=== PATIENT | female | born 1960 | race Caucasian/White ===

== ENCOUNTER 2017-10-25 20:02 | Emergency (ER) | payer OTHER ==
[~2017-10-25] VITALS: Ht 154.9 cm; Wt 54.2 kg
[2017-10-25 20:05] VITALS: TEMP 36.8; Ht 154.9 cm; Wt 54.2 kg
[2017-10-25] MEDS ORDERED: ACETAMINOPHEN 500 MG TAB PO STA (20:22)
--- NOTE | 2017-10-25 21:13 | DIAGNOSTIC IMAGING REPORT ---
PELVIS 1 OR 2 VIEW ROUTINE HISTORY: 56 years-old Female R buttock hematoma acute hematoma of the right buttocks COMPARISON: None available TECHNIQUE: Single AP view of the pelvis FINDINGS: No acute fracture or dislocation. Mild degenerative changes about the bilateral femoral acetabular joints and SI joints. Round ossifications are noted about the bilateral hips suggesting dystrophic calcifications. There is moderate soft tissue prominence within the soft tissues about the right hip, notably inferior and medially, likely correlating with gluteal hematoma as described in the patient history. No opaque foreign body. IMPRESSION: 1. Mild degenerative changes about the bilateral hips without acute fracture or dislocation. 2. Moderate soft tissue prominence about the right hip. The above report was generated using voice recognition software. It may contain grammatical, syntax or spelling errors. Electronically signed by: Mg Vidales M.D. 10/25/2017 9:11 PM Dictated Date/Time: 10/25/2017 9:10 PM
--- NOTE | 2017-10-25 21:37 | DIAGNOSTIC IMAGING REPORT ---
R EXTREMITY NONVASCULAR LIMITED HISTORY: 56 years-old Female R buttock hematoma acute right gluteal swelling COMPARISON: Pelvic radiograph of same day TECHNIQUE: Multiple real-time sonographic images of the right gluteal tissues were obtained assessing grayscale appearance and color flow FINDINGS/IMPRESSION: There is moderate subcutaneous edema about the right gluteal tissues. There are two separate mild complex hypoechoic collections within the area of concern, largest of which measures up to 1.7 x 3.3 x 1.4 cm, and the second measures 1.5 x 0.6 x 1.1 cm suggesting areas of intramuscular hematoma. No areas of increased vascularity. The above report was generated using voice recognition software. It may contain grammatical, syntax or spelling errors. Electronically signed by: Mg Vidales M.D. 10/25/2017 9:35 PM Dictated Date/Time: 10/25/2017 9:33 PM
[2017-10-25 22:24] VITALS: BP 143/97; PULSE 106; O2SAT 97
--- NOTE | 2017-10-26 00:15 | EMERGENCY ROOM VISIT NOTE ---
History First contact with patient: 20:11 Chief Complaint: OTHER COMPLAINT Stated Complaint: BUTTOCK INJURY EXTREME SWELLING AND PAIN History of Present Illness The patient is a 56 year old female who presents to the Emergency Room with complaints of a right buttock injury after she slipped while standing on a chair and fell onto the top of the chair post. The patient reports that the injury happened earlier this afternoon, then started to notice swelling and discomfort within a couple hours. Patient also reports firmness of the right buttock. She was seen at an urgent care center in [place], and encouraged to follow-up for further emergent ultrasound as they do not have ultrasound capability in the office. The patient rates her discomfort a 5 out of 10. She denies any paresthesias, numbness or burning sensation radiating down the leg. She denies any back pain. Ambulation worsens her discomfort. The patient does take a baby aspirin daily. Review of Systems 10 system review was performed and was negative except for pertinent positives and negatives as indicated in history of present illness Past Medical/Surgical History Medical Problems: (1) Hypertension (2) Hypothyroidism (3) Kidney stones Family History FH: heart disease FH: hypertension Social History Smoking Status: Never Smoker Alcohol Use: none Marital Status: Occupation Status: employed Physical Exam Vital Signs Date Time Temp Pulse Resp B/P (MAP) Pulse Ox O2 Delivery O2 Flow Rate FiO2 10/25/17 22:24 106 18 143/97 97 10/25/17 20:05 36.8 108 18 161/96 100 Room Air Physical Exam CONSTITUTIONAL: Healthy and well nourished. Alert and oriented X 3 with positive affect. HEENT: Normocephalic, atraumatic. Pupils equal, round and reactive. NECK: Full active range of motion without discomfort. MUSCULOSKELETAL: Gentle passive range of motion of the hip does not cause any discomfort. The patient exhibits a mild antalgic gait with ambulation. Patient has no tenderness to palpation through the sacral or lumbar spine region. Elbow stable with rock. INTEGUMENTARY: Examination shows notable induration and firmness of the right medial buttock region. No lacerations noted. NEUROLOGIC: Right lower extremity is sensory intact. Medical Decision & Procedures ER Provider Diagnostic Interpretation: My interpretation of pelvis x-rays does not show any obvious fractures. Radiologist report is as follows: PELVIS 1 OR 2 VIEW ROUTINE HISTORY: 56 years-old Female R buttock hematoma acute hematoma of the right buttocks COMPARISON: None available TECHNIQUE: Single AP view of the pelvis FINDINGS: No acute fracture or dislocation. Mild degenerative changes about the bilateral femoral acetabular joints and SI joints. Round ossifications are noted about the bilateral hips suggesting dystrophic calcifications. There is moderate soft tissue prominence within the soft tissues about the right hip, notably inferior and medially, likely correlating with gluteal hematoma as described in the patient history. No opaque foreign body. IMPRESSION: 1. Mild degenerative changes about the bilateral hips without acute fracture or dislocation. 2. Moderate soft tissue prominence about the right hip. Local ultrasound of the buttocks shows 2 small hematomas: R EXTREMITY NONVASCULAR LIMITED HISTORY: 56 years-old Female R buttock hematoma acute right gluteal swelling COMPARISON: Pelvic radiograph of same day TECHNIQUE: Multiple real-time sonographic images of the right gluteal tissues were obtained assessing grayscale appearance and color flow FINDINGS/IMPRESSION: There is moderate subcutaneous edema about the right gluteal tissues. There are two separate mild complex hypoechoic collections within the area of concern, largest of which measures up to 1.7 x 3.3 x 1.4 cm, and the second measures 1.5 x 0.6 x 1.1 cm suggesting areas of intramuscular hematoma. No areas of increased vascularity. Medications Administered Medications (Trade) Dose Ordered Sig/Fransico Route Start Time Stop Time Status Last Admin Dose Admin Acetaminophen (Tylenol Tab) 1,000 mg NOW STAT PO 10/25/17 20:22 10/25/17 20:25 DC 10/25/17 21:04 1,000 MG ED Course Patient history and physical exam were performed. Nurse's notes were reviewed. Vital signs were reviewed, showing an elevated blood pressure 161/96. The patient appears in mild to moderate discomfort. At her request, she was administered Tylenol 1 g. X-rays of the pelvis were normal. Ultrasound of the right buttock shows 2 distinct hematomas. At this point, the patient was encouraged to follow-up with a general surgeon in [place] for further management. She was also provided contact information for Dr. Jensen locally if she wishes to return to [place]. The patient was encouraged to intermittently apply ice to the buttock. Ibuprofen and Tylenol as needed for pain. She was instructed to seek emergent reevaluation for any significantly worsening pain or paresthesias/numbness of the right lower extremity. The patient was happy with plan of care, voiced understanding of all discharge instructions, and rated her discomfort a 3 out of 10 at the conclusion of my exam. The patient was also encouraged to follow-up with your PCP for blood pressure recheck. Medical Decision Medication Reconcilliation Current Medication List: was personally reviewed by me Blood Pressure Screening Patient's blood pressure: Elevated blood pressure Blood pressure disposition: Referred to PCP Impression Primary Impression: Right buttock hematoma Additional Impression: Elevated blood pressure reading with diagnosis of hypertension Departure Information Referrals Otilia Johnson D.O. (PCP) Patient Instructions [facility] Health Problem Qualifiers
== END 2017-10-25 22:24 | disposition home or self-care (01) ==
LOC: C.EDB 20:04 → C.EDD 22:24
DX: S30.0XXA Contusion of lower back and pelvis, initial encounter (principal); I10 Essential (primary) hypertension; W07.XXXA Fall from chair, initial encounter; W22.09XA Striking against other stationary object, initial encounter; Z87.442 Personal history of urinary calculi; Z82.49 Family history of ischemic heart disease and other diseases of the circulatory system

== ENCOUNTER 2019-07-30 07:45 | Inpatient (IN) ==
--- NOTE | 2019-07-15 12:57 | PAT Medication Instructions ---
Medication Instructions Date of Service July 15, 2019 Home Medications Levothyroxine 1 dose PO QAM amlodipine 5 mg PO HS ascorbic acid (vitamin C) 500 mg PO QAM cholecalciferol (vitamin D3) 125 mcg PO 3XWK coenzyme Q10 [CoQ-10] 200 mg PO HS hydrochlorothiazide 25 mg PO QAM lactobacillus combination no.4 [Probiotic] 3,000 mmu cells PO QAM magnesium 400 mg PO HS omega 0-vpe-pnw-fish oil [Fish Oil] 1 cap PO BID STOP taking 2 weeks before surgery If surgery is within 2 weeks, stop taking as soon as possible. coenzyme Q10 [CoQ-10] 200 mg PO HS omega 2-rvm-ezi-fish oil [Fish Oil] 1 cap PO BID DO NOT take the morning of surgery ascorbic acid (vitamin C) 500 mg PO QAM cholecalciferol (vitamin D3) 125 mcg PO 3XWK hydrochlorothiazide 25 mg PO QAM lactobacillus combination no.4 [Probiotic] 3,000 mmu cells PO QAM Take morning of surgery With a small sip of water, OTHERWISE NOTHING TO EAT OR DRINK AFTER MIDNIGHT: Levothyroxine 1 dose PO QAM Take evening before surgery amlodipine 5 mg PO HS magnesium 400 mg PO HS Other Notes If you have any questions please call us at [phone] or [phone] or [phone] or [phone]
--- NOTE | 2019-07-15 13:06 | Anesthesiology Consultation ---
Date of Service July 15, 2019 Assessment & Plan (1) Encounter for pre-operative examination: Chart Review Chart Review: Pending: Refer to Additional Notes / Consult section (pending PCP clearance and response to mild thrombocytosis ) and Patient seen in Pre Admission Testing BP mildly elevated in office- pt checks routinely at home- usually 130's/mid 80s. Has PCP clearance 07/18- will get copy Pre op labs showed mild thrombocytosis. Otherwise pre op testing unremarkable. Note and testing sent to PCP History Surgery Operation Date: 07/30/19 10:25 Proposed Procedures p L3-L5 Decompression and Fusion, Spinal Cord Monitoring - Froy Fernandes, Height/Weight Height: 5 ft 1 in Weight: 68 kg Allergies Allergy/AdvReac Type Severity Reaction Status Date / Time chlorhexidine Allergy Unknown "CHLORAPREP" Verified 07/08/19 10:00 - RED RASH ciprofloxacin [From Cipro] Allergy Unknown HIVES, Verified 07/08/19 10:00 RASH AND FACE REDNESS levofloxacin [From Levaquin] Allergy Unknown HIVES, Verified 07/08/19 10:00 RASH AND FACE REDNESS Medications Home Medications Medication Instructions Recorded Confirmed Last Taken Levothyroxine 1 dose PO QAM 07/08/19 07/08/19 Unknown amlodipine 5 mg PO HS 07/08/19 07/08/19 Unknown ascorbic acid (vitamin C) [Vitamin 500 mg PO QAM 07/08/19 07/08/19 Unknown C] cholecalciferol (vitamin D3) 125 mcg PO 3XWK 07/08/19 07/08/19 Unknown [Vitamin D3] coenzyme Q10 [CoQ-10] 200 mg PO HS 07/08/19 07/08/19 Unknown hydrochlorothiazide 25 mg PO QAM 07/08/19 07/08/19 Unknown lactobacillus combination no.4 3,000 mmu cells PO QAM 07/08/19 07/08/19 Unknown [Probiotic] magnesium 400 mg PO HS 07/08/19 07/08/19 Unknown omega 3-ijj-mma-fish oil [Fish Oil] 1 cap PO BID 07/08/19 07/08/19 Unknown Past Medical History Medical History Herniated disc LUMBAR History of kidney stones No recent issues Hypertension Has seen cardio in the past for HTN- has been controlled - now only follows with PCP. Hypothyroidism Pinched nerve Secondary to lumbar issue- right LE pain Exercise / Class Metabolic Activity II 4-5 Yardwork/Stairs/Walk up hill (one flight of stairs - no chest pain or SOB ) Past Surgical History Surgical History History of 2 sections Had GA with c-sections- 1st GA done due to not having enough time to put spinal in- fetus was in distress. Pt requested to have GA for second History of colonoscopy History of surgery "TUMMY TUCK" Past Anesthesia History No Hx of Anesthesia Complications and No Family Hx of Anesthesia Complications History of PONV No Hx of PONV (Did have scopolamine patch for tummy tuck as general precaution ) and No Hx of Motion Sickness (has had in past ) Social History Smoking Status: Never smoker Do You Dip or Chew Tobacco: No Hx Alcohol Use: No Hx Substance Use: No substance use type: does not use Review of Systems Patient denies chest pain, shortness of breath, dyspnea on exertion, reflux, cough, wheezing, palpitations. Steroid injection- 06/06/19 caused mild palpitations- no recent issues Physical Exam Vital Signs VITALS BP 152/95 P 101 TEMP 98.8 SP02 98% RESP 16 Constitutional no acute distress ENMT Mouth: no TMJ abnormality Thyromental Distance: > or= 3.5 Finger Breadths Right upper molar (second to last) has cap- no missing teeth Neck neck extension not limited Respiratory normal respiratory effort; no respiratory distress Auscultation: lungs clear to auscultation bilaterally; no wheezes Cardiovascular Rate/Rhythm: regular rate and regular rhythm Musculoskeletal Spine: no pain with cervical ROM Neurologic moves all extremities No LE edema Psychiatric Orientation: alert Testing Laboratory Results 07/15/19 13:39 07/15/19 13:39 PT 9.8 Seconds (9.0-12.0) 07/15/19 13:39 INR 1.0 (0.9-1.1) 07/15/19 13:39 APTT 24.6 Seconds (21.0-31.0) 07/15/19 13:39 Urine Color Yellow 07/15/19 Unknown Urine Appearance Clear (Clear) 07/15/19 Unknown Urine pH 6.5 (4.5-7.5) 07/15/19 Unknown Ur Specific Commerce 1.007 (1.000-1.030) 07/15/19 Unknown Urine Protein Negative (Negative) 07/15/19 Unknown Urine Glucose (UA) Negative (Negative) 07/15/19 Unknown Urine Ketones Trace (Negative) H 07/15/19 Unknown Urine Nitrite Negative (Negative) 07/15/19 Unknown Ur Leukocyte Esterase Negative (Negative) 07/15/19 Unknown Blood Type O Negative 07/15/19 13:39 Antibody Screen NEGATIVE 07/15/19 13:39 Electrocardiogram Date: 07/15/19 Findings: + NSR @ (92) Low voltage QRS. NS ST abnormality Chest X-Ray Date: 07/15/19 Findings: + NAD Stress Test Date: 08/30/17 Type: Exercise Stress ECHO Resting EF: 65% Resting RWMA: + none Valvular Disease: no significant valvular disease Stress ECHO negative for inducible ischemia. No EKG or wall motion abnormalities to suggest ischemia. 90% MPHR/8 METS. No significant arrhythmias
--- NOTE | 2019-07-15 14:07 | XRay Report ---
XR chest Pre-admission PA/Lat CLINICAL HISTORY: pat preoperative evaluation COMPARISON STUDY: No previous studies for comparison. FINDINGS: The bones soft tissues and hemidiaphragms are normal. The cardiomediastinal silhouette is n ormal. The lungs are clear. The pulmonary vasculature is normal. Minimal left basilar platelike atele ctasis IMPRESSION: No acute process. ACT 112: Negative or not required by law. The above report was generated using voice recognition software. It may contain grammatical, syntax or spelling errors. Electronically signed by: Matthew Ritchie M.D. 07/15/2019 2:05 PM
[2019-07-15 14:50] LABS: Basophils # (auto) 0.12 K/uL (0-0.2); Basophils % (auto) 1.5 %; Eosinophils # (auto) 0.04 K/uL (0-0.5); Eosinophils % (auto) 0.5 %; Hematocrit (blood only) 45.1 % (37-47); Hemoglobin 15.5 g/dL (12.0-16.0); Immature Granulocytes # (auto) 0.03 K/uL (0.00-0.02); Immature Granulocytes % (auto) 0.4 %; Lymphocytes # (auto) 2.14 K/uL (1.2-3.4); Lymphocytes % (auto) 26.6 %; Mean Corpuscular Hemoglobin 32.6 pg (25-34); Mean Corpuscular Hgb Conc 34.4 g/dL (32-36); Mean Corpuscular Volume 94.7 fL (80-100); Monocytes # (auto) 0.47 K/uL (0.11-0.59); Monocytes % (auto) 5.8 %; Neutrophils # (auto) 5.25 K/uL (1.4-6.5); Neutrophils % (auto) 65.2 %; Platelet Count 539 K/uL (130-400); RDW Coefficient of Variation 12.7 % (11.5-14.5); Red Blood Count 4.76 M/uL (4.2-5.4); White Blood Count 8.05 K/uL (4.8-10.8)
[2019-07-15 14:59] LABS: Appearance Urine Clear (Clear); Bilirubin Urine Negative (Negative); Blood Urine Negative (Negative); Color Urine Yellow; Glucose Urine UA Negative (Negative); Ketones Urine Trace (Negative); Leukocyte Esterase Urine Negative (Negative); Nitrite Urine Negative (Negative); Protein Urine Negative (Negative); Specific Gravity Urine 1.007 (1.000-1.030); Urobilinogen Urine Negative (Negative); pH Urine 6.5 (4.5-7.5)
[2019-07-15 15:08] LABS: Partial Thromboplastin Ratio 0.9; Partial Thromboplastin Time 24.6 Seconds (21.0-31.0); Prothrombin Time 9.8 Seconds (9.0-12.0)
[2019-07-15 15:47] LABS: BUN Creatinine Ratio 15.8 (10-20); Calcium 10.1 mg/dl (8.5-10.1); Creatinine Clr Calc Pharmacy 52.9 ml/min; Est GFR (African American) 70.6; Est GFR (Non-African American) 60.9; Potassium 3.6 mmol/L (3.5-5.1)
--- NOTE | 2019-07-16 17:38 | Electrocardiogram Report ---
Test Reason : Blood Pressure : / mmHG Vent. Rate : 092 BPM Atrial Rate : 092 BPM P-R Int : 148 ms QRS Dur : 076 ms QT Int : 350 ms P-R-T Axes : 066 065 032 degrees QTc Int : 432 ms Normal sinus rhythm Low voltage QRS Nonspecific ST abnormality Abnormal ECG No previous ECGs available Confirmed by Merrill Lucas ([id number]) on 07/16/2019 5:38:00 PM Referred By: Froy Fernandes Confirmed By:Shaw Lucas
[~2019-07-30 07:45] MED LIST: ACETAMINOPHEN 500 MG TAB PO SCH; CEFAZOLIN 1000MG 1,000 MG/7.5 ML SYR IV SCH; CeleBREX 200 MG CAP PO SCH; GABAPENTIN 600 MG DOSE PO SCH; LR 15ML/HR IV SCH
[2019-07-30] MEDS ORDERED: ePHEDrine sulfate 50 MG/ML AMP IV PRN (09:21)
[2019-07-30] MEDS ORDERED: ATROPINE SULFATE 0.1 MG/ML 10ML SYR IV PRN (09:21)
[2019-07-30] MEDS ORDERED: HYDROmorphone INJ 2 MG/ML SYR/VIAL IV PRN (09:21)
[2019-07-30] MEDS ORDERED: ONDANSETRON INJ 2 MG/ML 2 ML VIAL IV PRN ×2 (09:21→14:56)
--- NOTE | 2019-07-30 10:12 | History & Physical Report ---
Date of Service July 30, 2019 Assessment & Plan (1) Neurogenic claudication due to lumbar spinal stenosis: L3-L5 decompression fusion Present on Admission?: Yes History of Present Illness Chief Complaint: Back and leg pain Primary Care Provider: Prashanth Le MD This is a 58-year-old female presents with chronic persistent back and leg pain. After failing extensive course of nonoperative care is here for surgical intervention. Allergies Allergy/AdvReac Type Severity Reaction Status Date / Time chlorhexidine Allergy Unknown "CHLORAPREP" Verified 07/30/19 08:09 - RED RASH ciprofloxacin [From Cipro] Allergy Unknown HIVES, Verified 07/30/19 08:09 RASH AND FACE REDNESS levofloxacin [From Levaquin] Allergy Unknown HIVES, Verified 07/30/19 08:09 RASH AND FACE REDNESS Home Medications Home Medications Medication Instructions Recorded Confirmed Type Levothyroxine 1 dose PO QAM 07/08/19 07/30/19 History amlodipine 5 mg PO HS 07/08/19 07/30/19 History ascorbic acid (vitamin C) [Vitamin 500 mg PO QAM 07/08/19 07/30/19 History C] cholecalciferol (vitamin D3) 125 mcg PO 3XWK 07/08/19 07/30/19 History [Vitamin D3] coenzyme Q10 [CoQ-10] 200 mg PO HS 07/08/19 07/30/19 History hydrochlorothiazide 25 mg PO QAM 07/08/19 07/30/19 History lactobacillus combination no.4 3,000 mmu cells PO QAM 07/08/19 07/30/19 History [Probiotic] magnesium 400 mg PO HS 07/08/19 07/30/19 History omega 5-qqp-hti-fish oil [Fish Oil] 1 cap PO BID 07/08/19 07/30/19 History Past Med/Surg History Medical History Herniated disc LUMBAR History of kidney stones No recent issues Hypertension Has seen cardio in the past for HTN- has been controlled - now only follows with PCP. Hypothyroidism Pinched nerve Secondary to lumbar issue- right LE pain Surgical History History of 2 sections Had GA with c-sections- 1st GA done due to not having enough time to put spinal in- fetus was in distress. Pt requested to have GA for second History of colonoscopy History of surgery "SHABANA CASTELLON" Social History Preferred Language: Bahamian Communication Ability: Effective Credit Correspondence Clerk Required: No Beliefs That Will Affect Care: None Current Living Situation: Spouse Other Information That Helps Us Care for You: No Feels Safe at Home: Yes Smoking Status: Never smoker Do You Dip or Chew Tobacco: No ; Hx Alcohol Use: No Hx Substance Use: No Physical Exam Physical Exam: Patient is alert and oriented neurologically intact. Results & Data Vital Signs (Past 12 Hours) Vital Signs Temp Pulse Resp BP Pulse Ox 07/30/19 08:12 36.6 C 96 H 18 159/86 H 98
--- NOTE | 2019-07-30 10:12 | History & Physical Bridge Note ---
Date of Service July 30, 2019 History & Physical Bridge Note I have examined the patient, reviewed the History & Physical and in the interval since the performance of the History & Physical I have noted the following changes of clinical significance: no changes noted
[2019-07-30] MEDS ORDERED: BACITRACIN INJ 50,000 UNIT VIAL ONE (10:33)
[2019-07-30] MEDS ORDERED: BUPIVACAINE/EPINEPHRINE 0.5% MPF 1:200,000 10 ML VIAL ONE (10:33)
[2019-07-30] MEDS ORDERED: FLOSEAL HEMOSTATIC MATRIX 10ML TOP ONE (11:34)
[2019-07-30] MEDS ORDERED: ePHEDrine sulfate 50 MG/ML SYR ONE (12:02)
[2019-07-30] MEDS ORDERED: PHENYLEPHRINE 100MCG/ML 5ML SYR ONE (12:16)
[2019-07-30] MEDS ORDERED: ONDANSETRON INJ 2 MG/ML 2 ML VIAL ONE (12:16)
[2019-07-30] MEDS ORDERED: ROCURONIUM BROMIDE 10 MG/ML 5 ML VIAL ONE (12:16)
[2019-07-30] MEDS ORDERED: LIDOCAINE HCL 2% 2 ML VIAL/AMP(20MG/ML) INFIL ONE (12:16)
[2019-07-30] MEDS ORDERED: PROPOFOL IV EMULSION 10 MG/ML 20 ML VIAL IV ONE (12:16)
[2019-07-30] MEDS ORDERED: DEXAMETHASONE SOD INJ 4 MG/ML VIAL ONE (12:16)
[2019-07-30] MEDS ORDERED: HYDROmorphone INJ 2 MG/ML SYR/VIAL ONE (12:17)
[2019-07-30] MEDS ORDERED: GLYCOPYRROLATE 0.2 MG/ML VIAL ONE (13:00)
[2019-07-30] MEDS ORDERED: NEOSTIGMINE METHYLSULFATE 1 MG/ML 10ML VIAL ONE (13:00)
--- NOTE | 2019-07-30 13:04 | Operative Report ---
Post Operative Report Pre & Post Diagnosis Operation Date: 07/30/19 10:05 Pre-Op Diagnosis: LUMBAR IV DISC DISORDERS W/RADICULOPATHY Post-Op Diagnosis: LUMBAR IV DISC DISORDERS W/RADICULOPATHY I identified the patient and participated in the time-out.: No Procedure Operation Date: 07/30/19 10:05 Actual Procedures #1 lumbar decompression with bilateral medial facetectomies foraminotomies L3-4 L4-5. #2 posterior spinal fusion L3-4 L4-5. #3 placement posterior instrumentation L3-4 L4-5. #4 interbody fusion L3-4 L4-5. #5 placement of peek cage 12 x 22 mm at L3-4 and L4-5. #6 placement locally harvested morselized autograft in the posterior lateral gutters. #7 placement infuse collagen sponge, master graft in the posterior lateral gutters and ostial amp interbody space. Surgeon Froy Fernandes, Pump Erector Boyd Barth Estimated Blood Loss 100 Findings Consistent with Post-Op Diagnosis Specimens None Indications This is a 58-year-old female that presents with above-mentioned diagnosis after failed extensive course of nonoperative care is here for surgical intervention. Description of Procedure Patient was met with identified informed consent obtained. She was then taken to the operative suite underwent an patient placed in a prone position the Nima table on top of the Luke frame. All bony prominences padded eyes inspected to ensure no external pressure placed upon the. This point the lumbar spine was prepped and draped in normal sterile fashion. Sharp dissection with the assistance of Bovie cautery was performed down to and exposing the lamina and transverse processes of L3-L4-L5 bilaterally. From a caudal cephalad fashion complete laminectomy of L4 and L3 was performed including bilateral medial facetectomies foraminotomies as well as addressing far lateral disc herniation at L3-4 on the right and L4-5 on the left. After complete decompression pedicle screws were placed in L3-L4-L5 bilaterally with the assistance of fluoroscopy the proper sized yohana placed. By way of a transforaminal approach on the left complete discectomy of L4-5 was performed endplates coated to subcortical bleeding bone and a 12 x 22 mm peek cage filled with osteo-bone graft tapped in position. I then proceeded to L3-[address] to transfer approach this time on the right complete discectomy performed endplates coated to subcortical bleeding bone and again a 12 x 22 mm peek cage filled osteo-bone graft tapped position. The rods were then locked into final position bilaterally. The transverse processes of L3-L4-L5 bur to subcortical bleeding bone. Infuse collagen sponge master graft local autograft placed in the posterior lateral gutters. 15 round MARCOS drain inserted. The incision was then closed with 1 Vicryl in the fascia 2-0 Vicryl subcutaneously and 4 Monocryl for final skin closure. Steri-Strips dressings placed. Patient will continue PACU stable condition. Please note Boyd Barth present at the entire procedure involved the patient positioning complex portions of the surgery and final skin closure. Lastly spinal cord monitoring was utilized that the procedure no changes noted. I attest to the content of the Intraoperative Record and any orders documented therein. Any exceptions are noted below.
--- NOTE | 2019-07-30 13:14 | Fluoroscopy Report ---
FL lumbar spine 2-3V CLINICAL HISTORY: L3-L5 DECOMPRESSION AND FUSION COMPARISON STUDY: None FLUOROSCOPY TIME: 24 seconds. NUMBER OF FLUOROSCOPIC IMAGES: 2 FINDINGS: 2 intraoperative fluoroscopic spot images reveal postsurgical changes of an L3-5 spinal dec ompression and fusion. There is evidence for an L3-4 and L4-5 discectomies interbody fusions. Pedicle screws and adjoining spinal rods are evident IMPRESSION: Intraoperative fluoroscopic spot images demonstrating an L3-5 spinal decompression and f usion. ACT 112: Negative or not required by law. Electronically signed by: Braden Charles M.D. 07/30/2019 1:12 PM
[2019-07-30] MEDS: fentaNYL citrate 100 MCG/2 ML VIAL IV PRN ×2 (13:34→14:07)
--- NOTE | 2019-07-30 14:15 | Anesthesiology Progress Note ---
Date of Service July 30, 2019 Anesthesia Post Procedure Vital Signs Vital Signs: Temp Pulse Pulse Resp BP Pulse Ox 07/30/19 13:50 87 14 126/69 99 07/30/19 13:40 89 16 110/73 100 07/30/19 13:30 95 H 16 133/75 99 07/30/19 13:24 36.9 C 98 H 18 131/79 99 07/30/19 08:12 36.6 C 96 H 18 159/86 H 98 Pain Intensity Lower Back: Pain Intensity: 4 Transfer of Care Handoff Completed per policy Notes Mental Status: alert / awake / arousable Patient Amnestic to Procedure: Yes Nausea / Vomiting: adequately controlled Pain: adequately controlled Airway Patency, RR, SpO2: stable & adequate BP & HR: stable & adequate Hydration State: stable & adequate Anesthetic Complications: no major complications apparent
[2019-07-30] MEDS ORDERED: LORazepam 0.5 MG/1 ML VIAL IV PRN (14:56)
[2019-07-30] MEDS ORDERED: LORazepam 0.5 MG TAB PO PRN (14:56)
[2019-07-30] MEDS ORDERED: HYDROmorphone INJ 1 MG/ML SYRINGE IV PRN (14:56)
[2019-07-30] MEDS ORDERED: bisacodyL 10 MG SUPP PR PRN (14:56)
[2019-07-30] MEDS ORDERED: ACETAMINOPHEN 1,000 MG/100 ML VIAL IV PRN (14:56)
[2019-07-30] MEDS ORDERED: MAGNESIUM HYDROXIDE SUSP 30 ML UDC PO PRN (14:56)
[2019-07-30] MEDS ORDERED: METOCLOPRAMIDE HCL INJ 5 MG/ML 2 ML VIAL IV PRN (14:56)
[2019-07-30] MEDS ORDERED: DO NOT ADMINISTER PNEUMOCOCCAL VACCINE PRN (14:56)
[2019-07-30] MEDS ORDERED: SOD PHOSPHATE/SOD BIPHOSPHATE ENEMA 132 ML BTL PR PRN (14:56)
[2019-07-30] MEDS ORDERED: ONDANSETRON 4 MG OD TAB PO PRN (14:56)
[2019-07-30] MEDS ORDERED: FAMOTIDINE 20 MG TAB PO PRN (14:56)
[2019-07-30] MEDS ORDERED: ALUMINUM/MAGNESIUM SUSP 30 ML UDC PO PRN (14:56)
[2019-07-30] MEDS ORDERED: PROMETHAZINE HCL 12.5 MG in SODIUM CHLORIDE 0.9% 50 ML IV PRN (14:56)
[2019-07-30] MEDS ORDERED: HYDROmorphone INJ 0.5 MG/0.5 ML SYR IV PRN (14:56)
[2019-07-30] MEDS ORDERED: DO NOT ADMINISTER FLU VACCINE PRN (14:56)
[2019-07-30] MEDS ORDERED: NALOXONE HCL 0.4 MG/1 ML VIAL/CARP IV PRN (14:56)
[2019-07-30] MEDS: KETOROLAC TROMETHAMINE 15 MG/ML VIAL IV SCH ×2 (15:45→21:49)
[2019-07-30] MEDS: LACTATED RINGER'S 1,000 ML IV SCH (16:56)
[2019-07-30] MEDS: TRAMADOL HCL 50 MG TABLET PO PRN ×3 (16:58→21:53)
[2019-07-30] MEDS: CHOLECALCIFEROL 1,000 UNITS 25 MCG TAB PO SCH (16:59)
[2019-07-30] MEDS: CEFAZOLIN 1000MG 1,000 MG/7.5 ML SYR IV SCH (19:28)
[2019-07-30] MEDS: OXYCODONE HCL IR 5 MG TAB (IMMEDIATE RELEASE) PO PRN (19:41)
[2019-07-30] MEDS ORDERED: NON-FORMULARY MEDICATION (Coenzyme Q10 [Coq-10] 200 MG) PO SCH (21:00)
[2019-07-30] MEDS: DOCUSATE SODIUM/SENNA 50/8.6MG TAB PO SCH (21:49)
[2019-07-30] MEDS: MAGNESIUM OXIDE 400 MG TAB PO SCH (21:49)
[2019-07-30] MEDS: OMEGA-3 (PURIFIED FISH OIL) 1 GM CAP PO SCH (21:49)
[2019-07-30] MEDS: AMLODIPINE BESYLATE 5 MG TAB PO SCH (21:49)
[2019-07-31] MEDS: CEFAZOLIN 1000MG 1,000 MG/7.5 ML SYR IV SCH (02:59)
[2019-07-31] MEDS: KETOROLAC TROMETHAMINE 15 MG/ML VIAL IV SCH ×2 (03:04→10:09)
[2019-07-31] MEDS: LACTATED RINGER'S 1,000 ML IV SCH (03:23)
[2019-07-31] MEDS: LEVOTHYROXINE SODIUM 75 MCG TABLET PO SCH (06:00)
[2019-07-31] MEDS: POLYETHYLENE (MIRALAX) 17 GM PACK PO SCH ×4 (06:00→23:31)
[2019-07-31] MEDS: OXYCODONE HCL IR 5 MG TAB (IMMEDIATE RELEASE) PO PRN ×2 (06:06→11:51)
[2019-07-31] MEDS: ACETAMINOPHEN 500 MG TAB PO PRN (06:06)
[2019-07-31 06:09] LABS: Hematocrit (blood only) 35.5 % (37-47); Hemoglobin 11.9 g/dL (12.0-16.0); Immature Granulocytes # (auto) 0.02 K/uL (0.00-0.02); Immature Granulocytes % (auto) 0.1 %; Lymphocytes # (auto) 0.82 K/uL (1.2-3.4); Mean Corpuscular Hemoglobin 31.2 pg (25-34); Mean Corpuscular Hgb Conc 33.5 g/dL (32-36); Mean Corpuscular Volume 92.9 fL (80-100); Mean Platelet Volume 10.1 fL (7.4-10.4); Monocytes # (auto) 0.57 K/uL (0.11-0.59); Monocytes % (auto) 4.2 %; Neutrophils # (auto) 12.26 K/uL (1.4-6.5); Neutrophils % (auto) 89.7 %; Platelet Count 306 K/uL (130-400); RDW Coefficient of Variation 12.3 % (11.5-14.5); RDW Standard Deviation 41.9 fL (36.4-46.3); Red Blood Count 3.82 M/uL (4.2-5.4); White Blood Count 13.67 K/uL (4.8-10.8)
[2019-07-31 06:39] LABS: BUN Creatinine Ratio 18.3 (10-20); Calcium 9.2 mg/dl (8.5-10.1); Creatinine Clr Calc Pharmacy 53.5 ml/min; Est GFR (African American) 71.4; Est GFR (Non-African American) 61.6; Potassium 4.1 mmol/L (3.5-5.1)
[2019-07-31] MEDS: hydroCHLOROthiazide 25 MG TAB PO SCH (08:38)
[2019-07-31] MEDS: OMEGA-3 (PURIFIED FISH OIL) 1 GM CAP PO SCH ×2 (08:38→20:55)
[2019-07-31] MEDS: ASCORBIC ACID 500 MG TAB PO SCH (08:38)
[2019-07-31] MEDS: LACTOBACILLUS ACIDOPHILUS (FLORANEX) TAB PO SCH (08:38)
[2019-07-31] MEDS: TRAMADOL HCL 50 MG TABLET PO PRN ×2 (08:46→19:09)
--- NOTE | 2019-07-31 09:36 | Anesthesiology Progress Note ---
Date of Service July 31, 2019 Anesthesia Post Procedure Vital Signs Vital Signs: Temp Pulse Pulse Pulse Resp BP BP 07/31/19 08:40 36.6 C 79 18 108/70 07/31/19 03:20 36.7 C 89 18 111/66 07/30/19 23:35 36.4 C L 89 16 118/71 07/30/19 19:57 36.5 C 94 H 18 113/71 07/30/19 17:59 36.5 C 100 H 18 106/68 07/30/19 16:26 36.4 C L 88 20 115/73 07/30/19 15:47 36.4 C L 85 18 118/76 07/30/19 15:24 36.5 C 82 18 121/78 07/30/19 14:45 36.8 C 80 16 117/73 07/30/19 14:30 36.6 C 81 18 108/56 L 07/30/19 14:20 76 16 115/73 07/30/19 14:10 80 18 112/57 L 07/30/19 14:00 73 20 113/66 07/30/19 13:50 87 14 126/69 07/30/19 13:40 89 16 110/73 07/30/19 13:30 95 H 16 133/75 07/30/19 13:24 36.9 C 98 H 18 131/79 Pulse Ox 07/31/19 08:40 98 07/31/19 03:20 100 07/30/19 23:35 100 07/30/19 19:57 97 07/30/19 17:59 98 07/30/19 16:26 100 07/30/19 15:47 99 07/30/19 15:24 98 07/30/19 14:45 99 07/30/19 14:30 98 07/30/19 14:20 99 07/30/19 14:10 99 07/30/19 14:00 100 07/30/19 13:50 99 07/30/19 13:40 100 07/30/19 13:30 99 07/30/19 13:24 99 Pain Intensity Lower Back: Pain Intensity: 2 Notes Mental Status: alert / awake / arousable and participated in evaluation Patient Amnestic to Procedure: Yes Nausea / Vomiting: adequately controlled Pain: adequately controlled Airway Patency, RR, SpO2: stable & adequate BP & HR: stable & adequate Hydration State: stable & adequate Anesthetic Complications: no major complications apparent and Pt Satisfied with anesthetic care
--- NOTE | 2019-07-31 11:09 | Orthopedic Progress Note ---
Date of Service July 31, 2019 Assessment & Plan (1) Neurogenic claudication due to lumbar spinal stenosis: This time initiate physical therapy monitor her MARCOS output hopefully discharge home in the next few days. Present on Admission?: Yes Admission and Anticipated Discharge Date Admission Date: July 30, 2019 Subjective Back pain controlled leg pain improved. Physical Exam Physical Exam: Patient is in the chair at bedside. She is good strength testing. Appears comfortable. Results & Data ([facility]) Vital Signs (Past 12 Hours) Vital Signs Temp Pulse Pulse Resp BP BP Pulse Ox 07/31/19 08:40 36.6 C 79 18 108/70 98 07/31/19 03:20 36.7 C 89 18 111/66 100 07/30/19 23:35 36.4 C L 89 16 118/71 100
[2019-07-31] MEDS: AMLODIPINE BESYLATE 5 MG TAB PO SCH (20:55)
[2019-07-31] MEDS: DOCUSATE SODIUM/SENNA 50/8.6MG TAB PO SCH (20:55)
[2019-07-31] MEDS: MAGNESIUM OXIDE 400 MG TAB PO SCH (20:55)
[2019-08-01] MEDS: OXYCODONE HCL IR 5 MG TAB (IMMEDIATE RELEASE) PO PRN ×2 (03:16→14:25)
[2019-08-01] MEDS: POLYETHYLENE (MIRALAX) 17 GM PACK PO SCH ×2 (05:51→14:26)
[2019-08-01] MEDS: ACETAMINOPHEN 500 MG TAB PO PRN (05:51)
[2019-08-01] MEDS: LEVOTHYROXINE SODIUM 75 MCG TABLET PO SCH (05:51)
[2019-08-01] MEDS: hydroCHLOROthiazide 25 MG TAB PO SCH (08:39)
[2019-08-01] MEDS: OMEGA-3 (PURIFIED FISH OIL) 1 GM CAP PO SCH (08:39)
[2019-08-01] MEDS: ASCORBIC ACID 500 MG TAB PO SCH (08:40)
[2019-08-01] MEDS: LACTOBACILLUS ACIDOPHILUS (FLORANEX) TAB PO SCH (08:40)
[2019-08-01] MEDS: CHOLECALCIFEROL 1,000 UNITS 25 MCG TAB PO SCH (08:40)
[2019-08-01] MEDS: TRAMADOL HCL 50 MG TABLET PO PRN (11:17)
== END 2019-08-01 14:48 | disposition home or self-care (01) | DRG 455 ==
LOC: ASU 07:45 → 3E 13:28
DX: M48.062 Spinal stenosis, lumbar region with neurogenic claudication

== ENCOUNTER 2021-05-19 10:44 | Inpatient (IN) ==
[2021-05-19] MEDS ORDERED: oxyCODONE HCL IR 5 MG TAB (IMMEDIATE RELEASE) PO STA (16:36)
[2021-05-19] MEDS ORDERED: MoRPHine SULFATE 4 MG/ML 1 ML CARP\\VIAL IV STA (16:37)
[2021-05-19] MEDS ORDERED: ONDANSETRON INJ 2 MG/ML 2 ML VIAL IV STA (16:38)
--- NOTE | 2021-05-19 16:42 | Emergency Department Note ---
Impression & Plan Neurogenic claudication due to lumbar spinal stenosis, Back pain ED Provider Note NAME: ABIGAIL GODOY AGE: 60 SEX: F : 1960 ARRIVES VIA: Walk-In INFORMANT: Patient ED PROVIDER(S): Saurav Payne DO CHIEF COMPLAINT: Severe right leg pain HPI: Patient is a 60-year-old female who presents to the ER for severe right lower extremity pain. She notes she was scheduled for the OR tomorrow but it got canceled. She cannot take it anymore. She can no longer walk or sit. Denies any new weakness or numbness. Pain is focal to the right thigh. Shooting and a 10 out of 10. No other exacerbating or remitting factors. No back pain. No trauma. This is been present for the past 2 months. ROS: See above HPI for pertinent positives & negatives. A total of 10 systems reviewed and were otherwise negative. PAST MEDICAL HISTORY:See Below PAST SURGICAL HISTORY:See Below FAMILY HISTORY:See Below SOCIAL HISTORY:See Below HOME MEDICATIONS:See Below ALLERGIES:See Below VITALS:See Below PHYSICAL EXAMINATION: GENERAL: Sitting up in bed, alert, well appearing, well nourished, no distress, non-toxic EYE EXAM: normal conjunctiva. OROPHARYNX: no exudate, no erythema, lips, buccal mucosa, and tongue normal and mucous membranes are moist NECK: supple, no nuchal rigidity, no adenopathy, non-tender LUNGS: Clear to auscultation. Normal chest wall mechanics HEART: no murmurs, S1 normal and S2 normal ABDOMEN: abdomen soft, non-tender, normo-active bowel sounds, no masses, no rebound or guarding. BACK: Back is symmetrical on inspection and there is no deformity, no midline tenderness, no CVA tenderness. UPPER EXTREMITIES: upper extremities are grossly normal. LOWER EXTREMITIES: Flexion and extension of the hips, knees, ankles, and EHL 5/5 bilaterally. Gross sensation is intact. DPs are 2/4 bilateral. Patellar and Achilles reflexes are 2/4 bilateral NEURO EXAM: Normal sensorium, cranial nerves II-XII grossly intact, normal speech, no gross weakness of arms, no gross weakness of legs. MEDICAL DECISION MAKING: Patient is a 60-year-old female who presents ER for severe right leg pain. She is scheduled for the OR tomorrow but got canceled. She can no longer take the pain at home notably came in. IV was established blood work obtained. Labs show no significant leukocytosis or anemia. BMP with mild hypokalemia. This was repleted orally. She was neurologically intact on exam. She was given IV morphine. Discussed with Dr. Fernandes and he will admit her to the hospital for further work-up. Triage Nursing notes reviewed. Limited review of prior medical records performed Vital Signs: reviewed and remarkable for HTn and tachy Differential diagnosis: Differential diagnoses includes but is not limited to lumbar radiculopathy, kidney stone, muscle strain, facture, cauda equina, mass, and disc herniation. ER treatment provided: See below Diagnostics interpreted by me: ECG: none Cardiac Monitoring: An order was placed for continuous cardiac monitoring. The m onitor shows a rate of 102 with sinus rhythm. Laboratory studies: As stated above and show below. Imaging studies: See below Consultation(s): Discussed with Dr. Malachi Fernandes who will admit the patient. Procedures: none Critical Care: None Past Med/Surg History Medical History (Updated 05/19/21 @ 18:31 by Saurav Payne DO) Degenerative disc disease Herniated disc lumbar with "pinched nerve" and right sided radiculopathy Hypertension controlled per pt Hypothyroidism Spinal stenosis Surgical History (Updated 05/06/21 @ 11:50 by Laurie Cho PA-C) Fusion of spine L3-L5 decompression with fusion 07/30/2019: Grade 2 view, MAC#3, ETT#7.5, no issues per anesthesia progress note. History of 2 sections Had GA with c-sections- 1st GA done due to not having enough time to put spinal in- fetus was in distress. Pt requested to have GA for second History of colonoscopy History of lithotripsy History of tonsillectomy S/P panniculectomy scop patch as general precaution specific for procedure per records [place] teeth removed Family History Other No family history of adverse response to anesthesia Social History Smoking Status: Never smoker Second Hand Exposure: Yes ( A CHILD); Hx Alcohol Use: No Preferred Language: Uzbek Communication Ability: Effective Mitten Stitcher Required: No Beliefs That Will Affect Care: None Current Living Situation: Spouse Feels Safe at Home: Yes Assistive Devices: Glasses Allergies Allergies Allergy/AdvReac Type Severity Reaction Status Date / Time ciprofloxacin [From Cipro] Allergy Intermediate HIVES, Verified 05/19/21 16:50 RASH AND FACE REDNESS levofloxacin [From Levaquin] Allergy Intermediate HIVES, Verified 05/19/21 16:50 RASH AND FACE REDNESS chlorhexidine Allergy Unknown CONTACT Verified 05/19/21 16:50 DERMATITIS Home Meds Home Medications Medication Instructions Recorded Confirmed amlodipine 5 mg tablet 5 mg PO HS 07/08/19 05/19/21 ascorbic acid (vitamin C) 500 mg 500 mg PO QAM 07/08/19 05/19/21 tablet (Vitamin C) cholecalciferol (vitamin D3) 125 125 mcg PO QPM 07/08/19 05/19/21 mcg (5,000 unit) tablet (Vitamin D3) hydrochlorothiazide 25 mg tablet 25 mg PO QAM 07/08/19 05/19/21 lactobacillus combination no.4 3 3,000 mmu cells PO QAM 07/08/19 05/19/21 billion cell capsule (Probiotic) magnesium 200 mg tablet 400 mg PO QPM 07/08/19 05/19/21 levothyroxine 75 mcg tablet 75 mcg PO QAM 05/05/21 05/19/21 cyclobenzaprine 5 mg tablet 5 mg PO DIRECTED PRN 05/19/21 05/19/21 tramadol 50 mg tablet 50 mg PO DIRECTED PRN 05/19/21 05/19/21 zinc 50 mg tablet 50 mg PO QAM 05/19/21 05/19/21 Results & Data (ED) Vital Signs Vital Signs - 24 hr 05/19/21 10:54 Temperature 36.4 C L Temperature Source Temporal Artery Scan Pulse Rate 111 H Respiratory Rate 17 Blood Pressure 155/84 H Blood Pressure Mean 107 Pulse Oximetry 99 Oxygen Delivery Method Room Air Sepsis Recent Fever Within 48 Hours No Sepsis New/Unexplained Change in Mental Status N/A Sepsis Action Taken by Nursing No Action Required Laboratory Data Result diagrams: 05/19/21 17:17 05/19/21 17:17 Lab Results 05/19/21 05/19/21 Range/Units 17:17 17:17 WBC 9.00 (4.8-10.8) K/uL RBC 4.88 (4.2-5.4) M/uL Hgb 15.2 (12.0-16.0) g/dL Hct 43.9 (37-47) % MCV 90.0 (80-100) fL MCH 31.1 (25-34) pg MCHC 34.6 (32-36) g/dL RDW Std Deviation 42.0 (36.4-46.3) fL RDW Coeff of Surendra 12.8 (11.5-14.5) % Plt Count 475 H (130-400) K/uL MPV 10.0 (7.4-10.4) fL Immature Gran % (Auto) 0.1 % Neut % (Auto) 70.6 % Lymph % (Auto) 23.7 % Elbert % (Auto) 4.4 % Eos % (Auto) 0.3 % Baso % (Auto) 0.9 % Neut # (Auto) 6.35 (1.4-6.5) K/uL Lymph # (Auto) 2.13 (1.2-3.4) K/uL Elbert # (Auto) 0.40 (0.11-0.59) K/uL Eos # (Auto) 0.03 (0-0.5) K/uL Baso # (Auto) 0.08 (0-0.2) K/uL Immature Gran # (Auto) 0.01 (0.00-0.02) K/uL Sodium 136 (136-145) mmol/L Potassium 3.0 L (3.5-5.1) mmol/L Chloride 102 (98-107) mmol/L Carbon Dioxide 25 (21-32) mmol/L Anion Gap 9.0 (3-11) BUN 24 H (7-18) mg/dl Creatinine 1.17 (0.6-1.2) mg/dl Est Cr Clr Drug Dosing 45.6 ml/min Est GFR ( Amer) 58.2 ml/min Est GFR (Non-Af Amer) 50.3 ml/min BUN/Creatinine Ratio 20.7 H (10-20) Glucose 123 H (70-99) mg/dl Calcium 10.5 H (8.5-10.1) mg/dl Specimen Hemolysis Administered Medications Discontinued Medications Morphine Sulfate (Morphine Sulfate 4 Mg/Ml 1 Ml Carp\\Vial) 4 mg IV NOW STA Stop: 05/19/21 16:38 Last Admin: 05/19/21 17:26 Dose: 4 mg Documented by: [id number] Ondansetron HCl (Ondansetron Inj 2 Mg/Ml 2 Ml Vial) 4 mg IV NOW STA Stop: 05/19/21 16:39 Last Admin: 05/19/21 17:27 Dose: 4 mg Documented by: [id number] Oxycodone HCl (Oxycodone Hcl Ir 5 Mg Tab (Immediate Release)) 5 mg PO NOW STA Stop: 05/19/21 16:37 Last Admin: 05/19/21 17:27 Dose: Not Given Documented by: [id number] Discharge Plan Visit Data Chief Complaint: Leg Injury/Pain Stated Complaint: SEVERE R THIGH PAIN FROM BACK ED Provider: Saurav Payne Discharge Problem: Neurogenic claudication due to lumbar spinal stenosis, Back pain Forms Stand Alone Forms: [facility] Prescriptions Prescriptions: No Action amlodipine 5 mg Tablet 5 mg PO HS RF: 0 ascorbic acid (vitamin C) [Vitamin C] 500 mg Tablet 500 mg PO QAM RF: 0 hydrochlorothiazide 25 mg Tablet 25 mg PO QAM RF: 0 magnesium 200 mg Tablet 400 mg PO QPM RF: 0 cholecalciferol (vitamin D3) [Vitamin D3] 125 mcg (5,000 unit) Tablet 125 mcg PO QPM RF: 0 Probiotic 3 billion cell Capsule 3,000 mmu cells PO QAM RF: 0 levothyroxine 75 mcg Tablet 75 mcg PO QAM RF: 0 tramadol 50 mg tablet 50 mg PO DIRECTED PRN (Reason: Pain) RF: 0 zinc 50 mg Tablet 50 mg PO QAM RF: 0 cyclobenzaprine 5 mg tablet 5 mg PO DIRECTED PRN (Reason: MUSCLE SPASMS) RF: 0 Referrals Referrals: Prashanth Le MD [Primary Care Provider] - Discharge Problem: Back pain Qualifiers: Back pain location: low back pain Chronicity: acute Back pain laterality: unspecified Sciatica presence: unspecified whether sciatica present Qualified Code(s): M54.50 - Low back pain, unspecified
[2021-05-19 17:29] LABS: Basophils # (auto) 0.08 K/uL (0-0.2); Basophils % (auto) 0.9 %; Eosinophils # (auto) 0.03 K/uL (0-0.5); Eosinophils % (auto) 0.3 %; Hematocrit (blood only) 43.9 % (37-47); Hemoglobin 15.2 g/dL (12.0-16.0); Immature Granulocytes # (auto) 0.01 K/uL (0.00-0.02); Immature Granulocytes % (auto) 0.1 %; Lymphocytes # (auto) 2.13 K/uL (1.2-3.4); Lymphocytes % (auto) 23.7 %; Mean Corpuscular Hemoglobin 31.1 pg (25-34); Mean Corpuscular Hgb Conc 34.6 g/dL (32-36); Monocytes % (auto) 4.4 %; Neutrophils # (auto) 6.35 K/uL (1.4-6.5); Neutrophils % (auto) 70.6 %; Platelet Count 475 K/uL (130-400); RDW Coefficient of Variation 12.8 % (11.5-14.5); Red Blood Count 4.88 M/uL (4.2-5.4)
[2021-05-19 17:54] LABS: BUN Creatinine Ratio 20.7 (10-20); Calcium 10.5 mg/dl (8.5-10.1); Creatinine Clr Calc Pharmacy 45.6 ml/min; Est GFR (African American) 58.2 ml/min; Est GFR (Non-African American) 50.3 ml/min
[2021-05-19] MEDS ORDERED: POTASSIUM CHLORIDE CRTAB 20 MEQ TABCR PO STA ×2 (18:31→22:28)
[2021-05-19] MEDS ORDERED: METOCLOPRAMIDE HCL INJ 5 MG/ML 2 ML VIAL IV PRN ×2 (21:46)
[2021-05-19] MEDS ORDERED: MAGNESIUM HYDROXIDE SUSP 30 ML UDC PO PRN ×2 (21:46)
[2021-05-19] MEDS ORDERED: DO NOT ADMINISTER FLU VACCINE PRN (21:46)
[2021-05-19] MEDS ORDERED: diphenhydrAMINE Capsule 25 MG CAP PO PRN ×2 (21:46)
[2021-05-19] MEDS ORDERED: PROMETHAZINE HCL 12.5 MG in SODIUM CHLORIDE 0.9% 50 ML IV PRN (21:46)
[2021-05-19] MEDS ORDERED: SOD PHOSPHATE/SOD BIPHOSPHATE ENEMA 132 ML BTL PR PRN ×2 (21:46)
[2021-05-19] MEDS ORDERED: bisacodyL 10 MG SUPP PR PRN (21:46)
[2021-05-19] MEDS ORDERED: hydrOXYzine HCl 25 MG TAB PO PRN ×2 (21:46)
[2021-05-19] MEDS ORDERED: LACTATED RINGER'S 1,000 ML IV SCH (21:46)
[2021-05-19] MEDS ORDERED: HYDROmorphone INJ 0.5 MG/0.5 ML SYR IV PRN (21:46)
[2021-05-19] MEDS ORDERED: LORazepam 0.5 MG/1 ML VIAL IV PRN ×2 (21:46)
[2021-05-19] MEDS ORDERED: NALOXONE HCL 0.4 MG/1 ML VIAL/CARP IV PRN ×2 (21:46)
[2021-05-19] MEDS ORDERED: ONDANSETRON 4 MG OD TAB PO PRN ×2 (21:46)
[2021-05-19] MEDS ORDERED: ACETAMINOPHEN 500 MG TAB PO PRN (21:46)
[2021-05-19] MEDS ORDERED: ONDANSETRON INJ 2 MG/ML 2 ML VIAL IV PRN ×2 (21:46)
[2021-05-19] MEDS ORDERED: FAMOTIDINE 20 MG TAB PO PRN (21:46)
[2021-05-19] MEDS ORDERED: DO NOT ADMINISTER PNEUMOCOCCAL VACCINE PRN (21:46)
[2021-05-19] MEDS ORDERED: traMADol HCL 50 MG TABLET PO PRN (21:46)
[2021-05-19] MEDS ORDERED: ACETAMINOPHEN 1,000 MG/100 ML VIAL IV PRN ×2 (21:46)
[2021-05-19] MEDS ORDERED: ALUMINUM/MAGNESIUM SUSP 30 ML UDC PO PRN ×2 (21:46)
[2021-05-19] MEDS ORDERED: HYDROmorphone INJ 1 MG/ML SYRINGE IV PRN (21:46)
[2021-05-19] MEDS ORDERED: LORazepam 0.5 MG TAB PO PRN ×2 (21:46)
[2021-05-19] MEDS ORDERED: CHOLECALCIFEROL 1,000 UNITS 25 MCG TAB PO SCH (22:30)
--- NOTE | 2021-05-19 22:40 | Hospitalist Consultation ---
Date of Consultation May 19, 2021 Assessment & Plan (1) Lumbar disc herniation with radiculopathy: Final Assessment and Recommendations as follows : Lumbar radiculopathy hypertension, slightly elevated Hypokalemia secondary to home diuretic Rx hypothyroidism, euthyroid as of recent outpatient TSH Hypercalcemia with hypophosphatemia rule out primary hyperparathyroidism given history urolithiasis Hyperglycemia rule out DM Surgical management of lumbar radiculopathy as per Orthopedics Continue amlodipine. Hold HCTZ for now given hypokalemia, replace potassium Check intact PTH in a.m. May benefit from outpatient Nephrology consultation for hypercalcemia. Check hemoglobin A1c DVT prophylaxis. SCDs as per Orthopedics admission orders Thank you very much for this consultation. Dr. Ron will follow patient's progress. Text document was generated using Softricity voice recognition software. It may contain grammatical or spelling errors. Kindly contact undersigned for clarification of any documentation item in question. History of Present Illness Reason for Consultation: Medical management Requesting Physician: Dr. Fernandes Attending Physician: Froy Fernandes DO History of Present Illness PCP : Dr. Le History obtained from patient and records. Medical history significant for hypertension, hyperlipidemia, hypothyroidism, urolithiasis, osteoarthritis. Last confinement July 2019 for elective lumbar decompression surgery for LSS. 2 months ago, patient noted achy right leg pain without back pain. No fever, no chills. No weight loss. Elective surgery for lumbar radiculopathy contemplated tomorrow. Patient informed today that elective surgery for tomorrow was to be canceled due to Covid19/bed situation at [facility]. Patient presented to ER for worsening symptoms. Patient denies chest pain, S OB. Patient currently admitted under Orthopedics spine service. Medical History as above Surgical History : Cystoscopy, lithotripsy, Lamictal, section, back surgery Family History : Thyroid disease, heart disease Personal/Social history : Non-smoker, no EtOH intake, retired RN Allergies Allergy/AdvReac Type Severity Reaction Status Date / Time ciprofloxacin [From Cipro] Allergy Intermediate HIVES, Verified 05/19/21 16:50 RASH AND FACE REDNESS levofloxacin [From Levaquin] Allergy Intermediate HIVES, Verified 05/19/21 16:50 RASH AND FACE REDNESS chlorhexidine Allergy Unknown CONTACT Verified 05/19/21 16:50 DERMATITIS Home Medications Medication Instructions Recorded Confirmed Type amlodipine 5 mg tablet 5 mg PO HS 07/08/19 05/19/21 History ascorbic acid (vitamin C) 500 mg 500 mg PO QAM 07/08/19 05/19/21 History tablet (Vitamin C) cholecalciferol (vitamin D3) 125 125 mcg PO QPM 07/08/19 05/19/21 History mcg (5,000 unit) tablet (Vitamin D3) hydrochlorothiazide 25 mg tablet 25 mg PO QAM 07/08/19 05/19/21 History lactobacillus combination no.4 3 3,000 mmu cells PO QAM 07/08/19 05/19/21 History billion cell capsule (Probiotic) magnesium 200 mg tablet 400 mg PO QPM 07/08/19 05/19/21 History levothyroxine 75 mcg tablet 75 mcg PO QAM 05/05/21 05/19/21 History cyclobenzaprine 5 mg tablet 5 mg PO DIRECTED PRN 05/19/21 05/19/21 History tramadol 50 mg tablet 50 mg PO DIRECTED PRN 05/19/21 05/19/21 History zinc 50 mg tablet 50 mg PO QAM 05/19/21 05/19/21 History Patient History Medical History Degenerative disc disease Herniated disc lumbar with "pinched nerve" and right sided radiculopathy Hypertension controlled per pt Hypothyroidism Spinal stenosis Surgical History Fusion of spine L3-L5 decompression with fusion 07/30/2019: Grade 2 view, MAC#3, ETT#7.5, no issues per anesthesia progress note. History of 2 sections Had GA with c-sections- 1st GA done due to not having enough time to put spinal in- fetus was in distress. Pt requested to have GA for second History of colonoscopy History of lithotripsy History of tonsillectomy S/P panniculectomy scop patch as general precaution specific for procedure per records [place] teeth removed Family History Other No family history of adverse response to anesthesia Social History Smoking Status: Never smoker Second Hand Exposure: Yes ( A CHILD); Hx Alcohol Use: No Hx Substance Use: No Preferred Language: Palestinian Communication Ability: Effective Angiography Technologist Required: No Beliefs That Will Affect Care: None Current Living Situation: Spouse Current Living Situation Comment: lives at home with Other Information That Helps Us Care for You: No Feels Safe at Home: Yes Safety Concerns: Feels Safe At This Time Assistive Devices: Glasses Review of Systems Review of Systems: As per HPI, all 10 systems reviewed, all other ROS negative Physical Exam Physical Exam: GENERAL: Comfortable, pleasant, no respiratory distress SKIN: Normal color, warm HEENT: [place] palpebral conjunctivae, no ptosis, dry buccal mucosa NECK : Supple, no tenderness CHEST : CTA, no tenderness HEART : RRR, no obvious murmurs ABDOMEN: Some distention, nontender EXTREMITIES : Minimal LE swelling, no LE tenderness, no other conspicuous deformities noted NEUROLOGIC : Coherent, no facial asymmetry, gait and stance not assessed Results & Data Results & Data ([facility]) Vital Signs (Past 12 Hours) Vital Signs Temp Pulse Pulse Resp BP BP Pulse Ox 05/19/21 21:35 36.7 C 90 16 148/94 H 97 05/19/21 19:00 91 H 18 142/86 H 95 05/19/21 17:15 103 H 18 148/82 H 98 05/19/21 10:54 36.4 C L 111 H 17 155/84 H 99 Laboratory Results Laboratory Results WBC 9.00 K/uL (4.8-10.8) 05/19/21 17:17 RBC 4.88 M/uL (4.2-5.4) 05/19/21 17:17 Hgb 15.2 g/dL (12.0-16.0) 05/19/21 17:17 Hct 43.9 % (37-47) 05/19/21 17:17 MCV 90.0 fL (80-100) 05/19/21 17:17 MCH 31.1 pg (25-34) 05/19/21 17:17 MCHC 34.6 g/dL (32-36) 05/19/21 17:17 RDW Std Deviation 42.0 fL (36.4-46.3) 05/19/21 17:17 RDW Coeff of Surendra 12.8 % (11.5-14.5) 05/19/21 17:17 Plt Count 475 K/uL (130-400) H 05/19/21 17:17 MPV 10.0 fL (7.4-10.4) 05/19/21 17:17 Immature Gran % (Auto) 0.1 % 05/19/21 17:17 Neut % (Auto) 70.6 % 05/19/21 17:17 Lymph % (Auto) 23.7 % 05/19/21 17:17 [place] % (Auto) 4.4 % 05/19/21 17:17 Eos % (Auto) 0.3 % 05/19/21 17:17 Baso % (Auto) 0.9 % 05/19/21 17:17 Neut # (Auto) 6.35 K/uL (1.4-6.5) 05/19/21 17:17 Lymph # (Auto) 2.13 K/uL (1.2-3.4) 05/19/21 17:17 [place] # (Auto) 0.40 K/uL (0.11-0.59) 05/19/21 17:17 Eos # (Auto) 0.03 K/uL (0-0.5) 05/19/21 17:17 Baso # (Auto) 0.08 K/uL (0-0.2) 05/19/21 17:17 Immature Gran # (Auto) 0.01 K/uL (0.00-0.02) 05/19/21 17:17 Sodium 136 mmol/L (136-145) 05/19/21 17:17 Potassium 3.0 mmol/L (3.5-5.1) L 05/19/21 17:17 Chloride 102 mmol/L (98-107) 05/19/21 17:17 Carbon Dioxide 25 mmol/L (21-32) 05/19/21 17:17 Anion Gap 9.0 (3-11) 05/19/21 17:17 BUN 24 mg/dl (7-18) H 05/19/21 17:17 Creatinine 1.17 mg/dl (0.6-1.2) 05/19/21 17:17 Est Cr Clr Drug Dosing 45.6 ml/min 05/19/21 17:17 Est GFR ( Amer) 58.2 ml/min 05/19/21 17:17 Est GFR (Non-Af Amer) 50.3 ml/min 05/19/21 17:17 BUN/Creatinine Ratio 20.7 (10-20) H 05/19/21 17:17 Glucose 123 mg/dl (70-99) H 05/19/21 17:17 Calcium 10.5 mg/dl (8.5-10.1) H 05/19/21 17:17 Specimen Hemolysis 05/19/21 17:17 SARS-CoV-2, RNA, NAAT NEGATIVE (NEGATIVE) 05/19/21 17:28
[2021-05-19] MEDS: DOCUSATE SODIUM/SENNA 50/8.6MG TAB PO SCH (23:06)
[2021-05-19 23:07] LABS: Magnesium 2.2 mg/dl (1.8-2.4); Phosphorus 2.3 mg/dl (2.5-4.9)
[2021-05-19] MEDS: amLODIPine BESYLATE 5 MG TAB PO SCH (23:07)
[2021-05-19] MEDS: ACETAMINOPHEN 500 MG TAB PO PRN (23:07)
[2021-05-19] MEDS: MAGNESIUM OXIDE 400 MG TAB PO SCH (23:07)
[2021-05-19 23:18] LABS: Appearance Urine Clear (Clear); Bacteria Urine Automated Negative (Negative); Bilirubin Urine Negative (Negative); Blood Urine Negative (Negative); Cast Urine Automated 0 /lpf (0-5); Color Urine Yellow; Epithelial Cell Urine Auto >30 /lpf (0-5); Glucose Urine UA Negative (Negative); Ketones Urine Negative (Negative); Leukocyte Esterase Urine Trace (Negative); Nitrite Urine Negative (Negative); Protein Urine Negative (Negative); RBC Urine Automated 0-4 /hpf (0-4); Specific Gravity Urine 1.018 (1.000-1.030); Urobilinogen Urine Negative (Negative)
[2021-05-19] MEDS: POTASSIUM CHLORIDE 40 MEQ in SODIUM CHLORIDE 0.9% 1000ML 1,000 ML IV SCH (23:19)
[2021-05-20] MEDS: LEVOTHYROXINE SODIUM 75 MCG TABLET PO SCH (05:29)
[2021-05-20] MEDS: POLYETHYLENE (MIRALAX) 17 GM PACK PO SCH ×2 (05:36→11:34)
[2021-05-20] MEDS ORDERED: ceFAZolin 2000MG 2,000 MG/15 ML SYR IV SCH ×2 (06:00→13:00)
[2021-05-20 06:39] LABS: Basophils # (auto) 0.07 K/uL (0-0.2); Basophils % (auto) 1.2 %; Eosinophils # (auto) 0.07 K/uL (0-0.5); Eosinophils % (auto) 1.2 %; Hematocrit (blood only) 42.9 % (37-47); Hemoglobin 14.1 g/dL (12.0-16.0); Immature Granulocytes # (auto) 0.01 K/uL (0.00-0.02); Immature Granulocytes % (auto) 0.2 %; Lymphocytes # (auto) 1.75 K/uL (1.2-3.4); Lymphocytes % (auto) 30.5 %; Mean Corpuscular Hemoglobin 30.4 pg (25-34); Mean Corpuscular Hgb Conc 32.9 g/dL (32-36); Mean Corpuscular Volume 92.5 fL (80-100); Mean Platelet Volume 10.1 fL (7.4-10.4); Monocytes # (auto) 0.31 K/uL (0.11-0.59); Monocytes % (auto) 5.4 %; Neutrophils # (auto) 3.53 K/uL (1.4-6.5); Neutrophils % (auto) 61.5 %; Platelet Count 417 K/uL (130-400); RDW Standard Deviation 43.3 fL (36.4-46.3); Red Blood Count 4.64 M/uL (4.2-5.4); White Blood Count 5.74 K/uL (4.8-10.8)
[2021-05-20] MEDS: ZINC SULFATE 220 MG CAPSULE PO SCH (06:58)
[2021-05-20] MEDS: ASCORBIC ACID 500 MG TAB PO SCH (06:58)
[2021-05-20] MEDS: ADVANCED PROBIOTIC 1250 MG CAPSULE PO SCH (06:58)
[2021-05-20 07:20] LABS: BUN Creatinine Ratio 16.9 (10-20); Calcium 9.2 mg/dl (8.5-10.1); Creatinine Clr Calc Pharmacy 48.6 ml/min; Est GFR (African American) 64.2 ml/min; Est GFR (Non-African American) 55.4 ml/min
[2021-05-20 07:41] LABS: Estimated Average Glucose 140 mg/dl; Hemoglobin A1C 6.5 % (4.5-5.6)
--- NOTE | 2021-05-20 07:58 | History & Physical Report ---
Date of Service May 20, 2021 Assessment & Plan (1) Lumbar disc herniation with radiculopathy: Plan: Patient has a massive disc herniation at L2-L3 with migration into the lateral recess and foramen on the right. This is consistent with her clinical presentation. In light of her progressive strength deficit and pain and recommending urgent lumbar decompression fusion L2-L3 with mobile instrumentation L3-L5. Risk benefits pros cons alternatives were outlined in detail. Admission and Anticipated Discharge Date Admission Date: May 19, 2021 History of Present Illness Chief Complaint: Right leg pain with weakness Primary Care Provider: Prashanth Le MD This is a 60-year-old female well-known to us that presents with steady decline in function over the past several weeks. She describes pain shooting down the right leg into the right knee. She denies any precipitating trauma fall or event. She has marked difficulty with walking as the right leg amanda and gives out regularly. She had a course of oral steroids without relief. All other medications failed to provide relief. She is markedly uncomfortable and crying during our discussion. Left leg is asymptomatic at this time. Allergies Allergy/AdvReac Type Severity Reaction Status Date / Time ciprofloxacin [From Cipro] Allergy Intermediate HIVES, Verified 05/19/21 16:50 RASH AND FACE REDNESS levofloxacin [From Levaquin] Allergy Intermediate HIVES, Verified 05/19/21 16:50 RASH AND FACE REDNESS chlorhexidine Allergy Unknown CONTACT Verified 05/19/21 16:50 DERMATITIS Home Medications Medication Instructions Recorded Confirmed Type amlodipine 5 mg tablet 5 mg PO HS 07/08/19 05/19/21 History ascorbic acid (vitamin C) 500 mg 500 mg PO QAM 07/08/19 05/19/21 History tablet (Vitamin C) cholecalciferol (vitamin D3) 125 125 mcg PO QPM 07/08/19 05/19/21 History mcg (5,000 unit) tablet (Vitamin D3) hydrochlorothiazide 25 mg tablet 25 mg PO QAM 07/08/19 05/19/21 History lactobacillus combination no.4 3 3,000 mmu cells PO QAM 07/08/19 05/19/21 History billion cell capsule (Probiotic) magnesium 200 mg tablet 400 mg PO QPM 07/08/19 05/19/21 History levothyroxine 75 mcg tablet 75 mcg PO QAM 05/05/21 05/19/21 History cyclobenzaprine 5 mg tablet 5 mg PO DIRECTED PRN 05/19/21 05/19/21 History tramadol 50 mg tablet 50 mg PO DIRECTED PRN 05/19/21 05/19/21 History zinc 50 mg tablet 50 mg PO QAM 05/19/21 05/19/21 History Past Med/Surg History Medical History (Updated 05/20/21 @ 07:57 by Froy Fernandes, DO) Degenerative disc disease Herniated disc lumbar with "pinched nerve" and right sided radiculopathy Hypertension controlled per pt Hypothyroidism Spinal stenosis Surgical History (Updated 05/06/21 @ 11:50 by Laurie Cho PA-C) Fusion of spine L3-L5 decompression with fusion 07/30/2019: Grade 2 view, MAC#3, ETT#7.5, no issues per anesthesia progress note. History of 2 sections Had GA with c-sections- 1st GA done due to not having enough time to put spinal in- fetus was in distress. Pt requested to have GA for second History of colonoscopy History of lithotripsy History of tonsillectomy S/P panniculectomy scop patch as general precaution specific for procedure per records [place] teeth removed Family History Other No family history of adverse response to anesthesia Social History Smoking Status: Never smoker Second Hand Exposure: Yes ( A CHILD); Hx Alcohol Use: No Hx Substance Use: No Preferred Language: Arabic Communication Ability: Effective Issuer Required: No Beliefs That Will Affect Care: None Current Living Situation: Spouse Current Living Situation Comment: lives at home with Other Information That Helps Us Care for You: No Feels Safe at Home: Yes Safety Concerns: Feels Safe At This Time Assistive Devices: Glasses Physical Exam Physical Exam: On physical exam she requires assistance to stand she has significant weakness 3/5 with right hip flexors quadriceps compared to 5 or 5 on the left. She is marked decrease in sensation along the L2-L3 dermatomes to the right extremity full sensation on the left. She has a positive femoral stretch on the right with radiculopathy. Results & Data ([facility]) Vital Signs (Past 12 Hours) Vital Signs Temp Pulse Resp BP Pulse Ox 05/20/21 06:55 36.4 C L 91 H 16 128/76 98 05/19/21 21:35 36.7 C 90 16 148/94 H 97 Code Status & VTE Plan VTE Prophylaxis Plan VTE Prophylaxis will be ordered: Yes
[2021-05-20] MEDS ORDERED: hydroCHLOROthiazide 25 MG TAB PO SCH (09:00)
[2021-05-20] MEDS: ACETAMINOPHEN 1,000 MG/100 ML VIAL IV SCH ×3 (09:54→23:30)
[2021-05-20] MEDS: SODIUM CHLORIDE 0.9% 1000ML 1,000 ML IV SCH ×2 (10:25→21:19)
[2021-05-20] MEDS: POTASSIUM CHLORIDE 40 MEQ in SODIUM CHLORIDE 0.9% 1000ML 1,000 ML IV SCH (10:26)
--- NOTE | 2021-05-20 11:47 | Hospitalist Progress Note ---
Date of Service May 20, 2021 Assessment & Plan (1) Lumbar disc herniation with radiculopathy: (2) Hypertension: (3) Hypokalemia: (4) Hypothyroidism: (5) Hypercalcemia: Plan: This is a 60yo F with a PMH of lumbar radiculopathy, HTN, hypothyroidism and other medical problems listed below who presents with intractable BLE pain. Lumbar radiculopathy Progressive pain, difficulty with ambulation Dr Fernandes plans for decompression and fusion of L2-L3 this afternoon, remains NPO for now Per ortho for pain control, wound care, anticoagulation and activities Monitor H&H, continue incentive spirometry, PT/OT when appropriate HTN HCTZ held this morning given hypokalemia. Consider resuming tomorrow based on AM labs. Continue amlodipine Hypokalemia Initial K of 3, replaced with repeat wnl of 4. Monitor with daily BMP Hypothyroidism Continue levothyroxine Hypercalcemia with hypophosphatemia Rule out primary hyperparathyroidism given history urolithiasis PTH wnl Repeat Ca after hydration wnl DVT Ppx: SCDs for now, per ortho post-operatively Code status: FULL Dispo: Admitted to med/surg Patient seen in collaboration with Dr. Hernandez. Please see addendum. Admission and Anticipated Discharge Date Admission Date: May 19, 2021 Supervising Physician Co-Signing Physician Notes Patient is seen and examined prior to surgery today. Back pain is controlled. Reports right lower extremity numbness. Denies any chest pain, shortness of breath, dizziness, nausea, abdominal pain. On exam patient is well-built and nourished, no apparent distress, normocephalic atraumatic, lungs are clear to auscultation, S1-S2, no murmur, abdomen soft, nontender, normal bowel sounds, alert, awake, oriented, grossly no focal deficits. Lumbar disc herniation with radiculopathy-plan for surgery per Dr. Fernandes. Pain control. Monitor for postop anemia. Agree with holding HCTZ for now. Replace electrolytes as needed. I personally reviewed the record. Patient is interviewed and examined at bedside. Patient's care is coordinated with Kenisha Long PA-C. Please refer to the documentation above for details of patient's presentation and for discussion of other issues. Subjective Seen and examined in [id number]. Presenting with persistent and worsening nerve pain in BLE, specifically upper leg between knee and hip described as intermittent burning and tingling. Scheduled for lumbar decompression and fusion L2-[address] Fernandes today. Otherwise feeling well. Denies any fever, chills, CP, SOB, N/V/D, dysuria or constipation. Review of Systems Review of Systems: At least ten systems reviewed and negative except as noted in the HPI. Physical Exam Physical Exam: Gen: WD/WN, NAD, lying in bed, A&Ox3 HEENT: Normocephalic, atraumatic, conjunctivae moist, sclerae anicteric, mucous membranes moist Lung: Clear to Auscultation bilaterally, no wheezes/rales/rhonchi Heart: Regular rate, regular rhythm, no murmurs, rubs, or gallops Abdomen: Soft, NT, ND +BS x 4 Extremities: BLE pain with movement. Full ROM, strength intact. No edema Skin: Warm, no rash Results & Data Results & Data ([facility]) Vital Signs (Past 12 Hours) Vital Signs Temp Pulse Resp BP Pulse Ox 05/20/21 06:55 36.4 C L 91 H 16 128/76 98 Laboratory Results Short CBC 05/19/21 05/20/21 Range/Units 17:17 06:11 WBC 9.00 5.74 (4.8-10.8) K/uL Hgb 15.2 14.1 (12.0-16.0) g/dL Hct 43.9 42.9 (37-47) % Plt Count 475 H 417 H (130-400) K/uL BMP 05/19/21 05/20/21 17:17 06:11 Sodium 136 136 Potassium 3.0 L 4.0 D Chloride 102 106 Carbon Dioxide 25 25 BUN 24 H 18 Creatinine 1.17 1.08 Glucose 123 H 118 H Calcium 10.5 H 9.2 Urine 05/19/21 Range/Units Unknown Urine Color Yellow Urine Appearance Clear (Clear) Urine pH 6.0 (4.5-7.5) Ur Specific [place] 1.018 (1.000-1.030) Urine Protein Negative (Negative) Urine Glucose (UA) Negative (Negative)
--- NOTE | 2021-05-20 11:56 | Anesthesiology Consultation ---
Date of Service May 20, 2021 Assessment & Plan (1) Encounter for pre-operative examination: Chart Review Chart Review: entry level buyer initiated History Surgery Operation Date: 05/20/21 12:45 Proposed Procedures p L2-L3 Decompression Fusion - Froy Fernandes DO Height/Weight Height: 5 ft 1 in Weight: 69 kg Allergies Allergy/AdvReac Type Severity Reaction Status Date / Time ciprofloxacin [From Cipro] Allergy Intermediate HIVES, Verified 05/19/21 16:50 RASH AND FACE REDNESS levofloxacin [From Levaquin] Allergy Intermediate HIVES, Verified 05/19/21 16:50 RASH AND FACE REDNESS chlorhexidine Allergy Unknown CONTACT Verified 05/19/21 16:50 DERMATITIS Medications Home Medications Medication Instructions Recorded Confirmed Last Taken amlodipine 5 mg tablet 5 mg PO HS 07/08/19 05/19/21 05/18/21 ascorbic acid (vitamin C) 500 mg 500 mg PO QAM 07/08/19 05/19/21 05/19/21 tablet (Vitamin C) cholecalciferol (vitamin D3) 125 125 mcg PO QPM 07/08/19 05/19/21 05/18/21 mcg (5,000 unit) tablet (Vitamin D3) hydrochlorothiazide 25 mg tablet 25 mg PO QAM 07/08/19 05/19/21 05/19/21 lactobacillus combination no.4 3 3,000 mmu cells PO QAM 07/08/19 05/19/21 05/19/21 billion cell capsule (Probiotic) magnesium 200 mg tablet 400 mg PO QPM 07/08/19 05/19/21 05/18/21 levothyroxine 75 mcg tablet 75 mcg PO QAM 05/05/21 05/19/21 05/19/21 cyclobenzaprine 5 mg tablet 5 mg PO DIRECTED PRN 05/19/21 05/19/21 Unknown tramadol 50 mg tablet 50 mg PO DIRECTED PRN 05/19/21 05/19/21 Unknown zinc 50 mg tablet 50 mg PO QAM 05/19/21 05/19/21 05/19/21 Active Medications Generic Name Dose Route Start Last Admin Trade Name Freq PRN Reason Stop Dose Admin Acetaminophen 1,000 mg 05/19/21 21:46 05/19/21 23:07 Acetaminophen 500 Mg Tab PO 06/18/21 21:45 1,000 mg Q8H PRN Administration MILD Pain Scale 1,2,3 & Pre PT Amlodipine Besylate 5 mg 05/19/21 22:30 05/19/21 23:07 Amlodipine Besylate 5 Mg Tab PO 06/18/21 22:29 5 mg HS GERALDINE Administration Ascorbic Acid 500 mg 05/20/21 09:00 05/20/21 06:58 Ascorbic Acid 500 Mg Tab PO 06/19/21 08:59 Not Given QAM GERALDINE Cefazolin Sodium 2,000 mg in 15 mls @ 3.75 mls/min 05/20/21 06:00 05/20/21 05:29 Ancef 2000mg IV 05/21/21 05:59 3.75 mls/min PREOP GERALDINE Administration Protocol Acetaminophen 1,000 mg in 100 mls @ 400 mls/hr 05/20/21 08:00 05/20/21 10:25 Ofirmev IV 05/23/21 07:59 Infused Q8H GERALDINE Infusion Sodium Chloride 1,000 mls @ 80 mls/hr 05/20/21 10:15 05/20/21 10:25 Nss 1000ml IV 05/21/21 11:14 80 mls/hr .[id number] GERALDINE Administration Lactobacillus Acidoph/Casei/Rhamnos 2 cap 05/20/21 09:00 05/20/21 06:58 Advanced Probiotic 1250 Mg Capsule PO 06/19/21 08:59 Not Given QAM GERALDINE Levothyroxine Sodium 75 mcg 05/20/21 06:30 05/20/21 05:29 Levothyroxine Sodium 75 Mcg Tablet PO 06/19/21 06:29 75 mcg DAILYBB GERALDINE Administration Magnesium Oxide 400 mg 05/19/21 22:30 05/19/21 23:07 Magnesium Oxide 400 Mg Tab PO 06/18/21 22:29 400 mg QPM GERALDINE Administration Polyethylene Glycol 17 gm 05/20/21 06:00 05/20/21 11:34 Polyethylene (Miralax) 17 Gm Pack PO 06/19/21 05:59 Not Given Q6 GERALDINE Senna/Docusate Sodium 2 tab 05/19/21 22:15 05/19/21 23:06 Docusate Sodium/Senna 50/8.6mg Tab PO 06/18/21 22:14 Not Given HS GERALDINE Vitamin D 5,000 units 05/19/21 22:30 05/19/21 23:07 Cholecalciferol 1,000 Units 25 Mcg Tab PO 06/18/21 22:29 5,000 units QPM GERALDINE Administration Zinc Sulfate 220 mg 05/20/21 09:00 05/20/21 06:58 Zinc Sulfate 220 Mg Capsule PO 06/19/21 08:59 Not Given QAM GERALDINE NPO Date Last Intake of Fluids: 05/19/21 Past Medical History Medical History Degenerative disc disease Herniated disc lumbar with "pinched nerve" and right sided radiculopathy Hypertension controlled per pt Hypothyroidism Spinal stenosis Past Family History Family History Other No family history of adverse response to anesthesia Past Surgical History Surgical History Fusion of spine L3-L5 decompression with fusion 07/30/2019: Grade 2 view, MAC#3, ETT#7.5, no issues per anesthesia progress note. History of 2 sections Had GA with c-sections- 1st GA done due to not having enough time to put spinal in- fetus was in distress. Pt requested to have GA for second History of colonoscopy History of lithotripsy History of tonsillectomy S/P panniculectomy scop patch as general precaution specific for procedure per records [place] teeth removed Social History Smoking Status: Never smoker Hx Alcohol Use: No Hx Substance Use: No substance use type: does not use Physical Exam Vital Signs Last Vital Signs Temp 97.5 F L 05/20/21 06:55 Pulse 91 H 05/20/21 06:55 Resp 16 05/20/21 06:55 BP 128/76 05/20/21 06:55 Pulse Ox 98 05/20/21 06:55 Testing Laboratory Results 05/20/21 06:11 05/20/21 06:11 Hemoglobin A1c 6.5 % (4.5-5.6) H 05/19/21 17:17 Urine Color Yellow 05/19/21 Unknown Urine Appearance Clear (Clear) 05/19/21 Unknown Urine pH 6.0 (4.5-7.5) 05/19/21 Unknown Ur Specific [place] 1.018 (1.000-1.030) 05/19/21 Unknown Urine Protein Negative (Negative) 05/19/21 Unknown Urine Glucose (UA) Negative (Negative) 05/19/21 Unknown Urine Ketones Negative (Negative) 05/19/21 Unknown Urine Nitrite Negative (Negative) 05/19/21 Unknown Ur Leukocyte Esterase Trace (Negative) H 05/19/21 Unknown Urine WBC (Auto) 1-5 /hpf (0-5) 05/19/21 Unknown Urine RBC (Auto) 0-4 /hpf (0-4) 05/19/21 Unknown U Hyaline Cast (Auto) 0 /lpf (0-5) 05/19/21 Unknown U Epithel Cells (Auto) >30 /lpf (0-5) H 05/19/21 Unknown Urine Bacteria (Auto) Negative (Negative) 05/19/21 Unknown Electrocardiogram Date: 05/06/21 Normal sinus rhythm, rate 82 bpm Diffuse Minor Nonspecific ST abnormality Abnormal ECG When compared with ECG of 15-JUL-2019 13:36, No significant change was found Confirmed by Gary Fong ([id number]) on 05/06/2021 2:41:57 PM Chest X-Ray Date: 05/06/21 Findings: + NAD
[2021-05-20] MEDS ORDERED: EPINEPHrine INJ 1 MG/ML AMP ONE (12:28)
[2021-05-20] MEDS ORDERED: BUPIVACAINE 0.5 % 5 MG/1 ML MPF 30ML VIAL ONE (12:29)
[2021-05-20] MEDS ORDERED: fentaNYL citrate 100 MCG/2 ML VIAL IV PRN (12:40)
[2021-05-20] MEDS ORDERED: ePHEDrine sulfate 50 MG/ML AMP IV PRN (12:40)
[2021-05-20] MEDS ORDERED: ATROPINE SULFATE 0.1 MG/ML 10ML SYR IV PRN (12:40)
[2021-05-20] MEDS ORDERED: HYDROmorphone INJ 1 MG/ML SYRINGE IV PRN ×2 (12:40→16:03)
[2021-05-20] MEDS ORDERED: ONDANSETRON INJ 2 MG/ML 2 ML VIAL IV PRN ×2 (12:40→16:03)
[2021-05-20] MEDS ORDERED: FLOSEAL HEMOSTATIC MATRIX 10ML TOP ONE (14:06)
--- NOTE | 2021-05-20 14:44 | Operative Report ---
Post Operative Report Pre & Post Diagnosis Operation Date: 05/20/21 12:45 Pre-Op Diagnosis: Lumbar Disc Herniation with Radiculopathy Post-Op Diagnosis: Lumbar Disc Herniation with Radiculopathy I identified the patient and participated in the time-out.: Yes Procedure Operation Date: 05/20/21 12:45 Actual Procedures #1 removal of posterior instrumentation L3-4 L4-5 #2 exploration of fusion L3-4 L4-5 #3 lumbar decompression with bilateral medial facetectomies and foraminotomies L2-L3. #4 posterior spinal fusion L2-L3. #5 patient posterior instrumentation L2-L5. #6 interbody fusion L2-3. #7 placement of peek cage 9 x 22 mm at L2-L3. #8 placement locally harvested morselized autograft in the posterior gutters. #9 placement use collagen sponge, master graft in the posterior lateral gutters and I factor and interbody space. Surgeon Froy Fernandes, Credit Control Officer Paulette Guadalupe Estimated Blood Loss 100 Findings Consistent with Post-Op Diagnosis Specimens None Indications This is a 60-year-old female presents with massive disc herniation spinal stenosis L2-L3. With progressive neuro deficit she is here for urgent decomp ression fusion. Description of Procedure Patient was met with identified informed consent obtained. Patient was then taken to the operative suite underwent patient placed in a prone position the [place] table top Luke frame. All bony prominences well-padded eyes inspected to ensure no external pressure placed upon the. This point lumbar spine was prepped and draped in a sterile fashion. Sharp dissection with the assistance of Bovie cautery was performed down to and exposing the lamina and transverse processes of L2 and instrumentation at L3-L4-L5 bilaterally. Then proceeded move the hardware bilaterally explore the fusion mass noting it to be maturing intact. Then performed a complete laminectomy of L2 including bilateral medial facetectomies and foraminotomies addressing severe spinal stenosis as well as identified a massive free fragment disc material on the right with cephalad migration. After complete decompression pedicle screws were placed in L2 L3-L4-L5 bilaterally with assistance of fluoroscopy and the properly sized yohana placed. By way of a transfemoral approach on the right complete discectomy was performed endplates curetted to subcortically bone and a 11 x 22 mm peek cage filled with I factor tapped in position. The rods were then placed compressed locked in final position bilaterally. The transverse processes of L2 and L3 burred to subcortical bleeding bone. Infuse collagen sponge mass graft local autograft was placed in the posterior gutters. 15 round MARCOS drain inserted. The incision was then closed with 1 Vicryl the fascia 2-0 Vicryl subcutaneously and 4 Monocryl for final skin closure. Steri-Strip Steri-Strips placed. Patient waken taken PACU stable condition. Please note spinal cord monitoring was utilized at the procedure no changes noted. Lastly Boyd Barth was present at the entire surgery and while the place positioning complex portions of the surgery and final skin closure. I attest to the content of the Intraoperative Record and any orders documented therein. Any exceptions are noted below.
--- NOTE | 2021-05-20 14:56 | Fluoroscopy Report ---
FL lumbar spine 2-3V CLINICAL HISTORY: L2-3 D/F/I status post internal fixation COMPARISON STUDY: 07/30/2019 FLUOROSCOPY TIME: 11 seconds. FLUOROSCOPIC IMAGES: 2 FINDINGS: Compared to previous examination, AP and lateral spot films now demonstrate interpedicular screw and yohana fixation from L2 through L5. Disc spaces are in place. IMPRESSION: Status post internal fixation. ACT 112: Negative or not required by law. Electronically signed by: Chad Moore M.D. 05/20/2021 2:54 PM
[2021-05-20] MEDS ORDERED: PROMETHAZINE HCL INJ 25 MG/ML 1 ML VIAL ONE (15:27)
[2021-05-20] MEDS ORDERED: SODIUM CHLORIDE 0.9% 50 ML BAG ONE (15:28)
[2021-05-20] MEDS ORDERED: PROMETHAZINE HCL 6.25 MG in SODIUM CHLORIDE 0.9% 50 ML IV STA (15:35)
--- NOTE | 2021-05-20 15:52 | Anesthesiology Progress Note ---
Date of Service May 20, 2021 Anesthesia Post Procedure Vital Signs Vital Signs: Temp Pulse Pulse Resp BP Pulse Ox 05/20/21 15:45 36.3 C L 90 19 126/72 100 05/20/21 15:35 85 13 126/85 99 05/20/21 15:25 93 H 17 144/74 H 96 05/20/21 15:15 88 13 131/80 100 05/20/21 15:05 83 12 133/86 100 05/20/21 14:58 36.7 C 89 13 157/90 H 99 05/20/21 11:38 36.9 C 93 H 18 141/81 H 100 05/20/21 06:55 36.4 C L 91 H 16 128/76 98 05/19/21 21:35 36.7 C 90 16 148/94 H 97 05/19/21 19:00 91 H 18 142/86 H 95 05/19/21 17:15 103 H 18 148/82 H 98 Pain Intensity Back: Pain Intensity: 4 Transfer of Care Handoff Completed per policy Notes Mental Status: alert / awake / arousable Patient Amnestic to Procedure: Yes Nausea / Vomiting: adequately controlled Pain: adequately controlled Airway Patency, RR, SpO2: stable & adequate BP & HR: stable & adequate Hydration State: stable & adequate Anesthetic Complications: no major complications apparent
[2021-05-20] MEDS ORDERED: HYDROmorphone INJ 0.5 MG/0.5 ML SYR IV PRN (16:03)
[2021-05-20] MEDS ORDERED: oxyCODONE HCL IR 5 MG TAB (IMMEDIATE RELEASE) PO PRN (16:03)
[2021-05-20] MEDS ORDERED: PROMETHAZINE HCL 12.5 MG in SODIUM CHLORIDE 0.9% 50 ML IV PRN (16:03)
[2021-05-20] MEDS ORDERED: hydrOXYzine HCl 25 MG TAB PO PRN (16:03)
[2021-05-20] MEDS ORDERED: MAGNESIUM HYDROXIDE SUSP 30 ML UDC PO PRN (16:03)
[2021-05-20] MEDS ORDERED: LORazepam 0.5 MG/1 ML VIAL IV PRN (16:03)
[2021-05-20] MEDS ORDERED: ALUMINUM/MAGNESIUM SUSP 30 ML UDC PO PRN (16:03)
[2021-05-20] MEDS ORDERED: diphenhydrAMINE Capsule 25 MG CAP PO PRN (16:03)
[2021-05-20] MEDS ORDERED: bisacodyL 10 MG SUPP PR PRN (16:03)
[2021-05-20] MEDS ORDERED: DO NOT ADMINISTER PNEUMOCOCCAL VACCINE PRN (16:03)
[2021-05-20] MEDS ORDERED: ACETAMINOPHEN 1,000 MG/100 ML VIAL IV PRN (16:03)
[2021-05-20] MEDS ORDERED: NALOXONE HCL 0.4 MG/1 ML VIAL/CARP IV PRN (16:03)
[2021-05-20] MEDS ORDERED: LORazepam 0.5 MG TAB PO PRN (16:03)
[2021-05-20] MEDS ORDERED: ONDANSETRON 4 MG OD TAB PO PRN (16:03)
[2021-05-20] MEDS ORDERED: LACTATED RINGER'S 1,000 ML IV SCH (16:03)
[2021-05-20] MEDS ORDERED: ACETAMINOPHEN 500 MG TAB PO PRN (16:03)
[2021-05-20] MEDS ORDERED: DO NOT ADMINISTER FLU VACCINE PRN (16:03)
[2021-05-20] MEDS ORDERED: FAMOTIDINE 20 MG TAB PO PRN (16:03)
[2021-05-20] MEDS ORDERED: SOD PHOSPHATE/SOD BIPHOSPHATE ENEMA 132 ML BTL PR PRN (16:03)
[2021-05-20] MEDS ORDERED: METOCLOPRAMIDE HCL INJ 5 MG/ML 2 ML VIAL IV PRN (16:03)
[2021-05-20] MEDS ORDERED: traMADol HCL 50 MG TABLET PO PRN (16:03)
[2021-05-20] MEDS: oxyCODONE HCL IR 5 MG TAB (IMMEDIATE RELEASE) PO PRN ×2 (16:28→22:04)
[2021-05-20] MEDS: KETOROLAC TROMETHAMINE 15 MG/ML VIAL IV SCH ×2 (17:51→23:30)
[2021-05-20] MEDS: ceFAZolin 1000MG 1,000 MG/7.5 ML SYR IV SCH (19:33)
[2021-05-20] MEDS: amLODIPine BESYLATE 5 MG TAB PO SCH (20:34)
[2021-05-20] MEDS: MAGNESIUM OXIDE 400 MG TAB PO SCH (20:34)
[2021-05-20] MEDS: DOCUSATE SODIUM/SENNA 50/8.6MG TAB PO SCH (20:34)
[2021-05-20] MEDS ORDERED: DOCUSATE SODIUM/SENNA 50/8.6MG TAB PO SCH (21:00)
[2021-05-21] MEDS: ceFAZolin 1000MG 1,000 MG/7.5 ML SYR IV SCH (05:10)
[2021-05-21] MEDS: KETOROLAC TROMETHAMINE 15 MG/ML VIAL IV SCH ×2 (05:10→11:29)
[2021-05-21] MEDS: POLYETHYLENE (MIRALAX) 17 GM PACK PO SCH ×4 (05:10→21:25)
[2021-05-21] MEDS: LEVOTHYROXINE SODIUM 75 MCG TABLET PO SCH (05:10)
[2021-05-21] MEDS: oxyCODONE HCL IR 5 MG TAB (IMMEDIATE RELEASE) PO PRN ×3 (05:15→18:19)
[2021-05-21 06:32] LABS: BUN Creatinine Ratio 13.9 (10-20); Calcium 8.8 mg/dl (8.5-10.1); Creatinine Clr Calc Pharmacy 47.3 ml/min; Est GFR (African American) 62.1 ml/min; Est GFR (Non-African American) 53.6 ml/min; Magnesium 2.2 mg/dl (1.8-2.4); Potassium 4.4 mmol/L (3.5-5.1)
[2021-05-21 06:41] LABS: Phosphorus 3.3 mg/dl (2.5-4.9)
[2021-05-21 06:48] LABS: Basophils # (auto) 0.01 K/uL (0-0.2); Basophils % (auto) 0.1 %; Hematocrit (blood only) 35.6 % (37-47); Hemoglobin 11.7 g/dL (12.0-16.0); Immature Granulocytes # (auto) 0.06 K/uL (0.00-0.02); Immature Granulocytes % (auto) 0.3 %; Lymphocytes # (auto) 1.17 K/uL (1.2-3.4); Lymphocytes % (auto) 6.5 %; Mean Corpuscular Hemoglobin 30.4 pg (25-34); Mean Corpuscular Hgb Conc 32.9 g/dL (32-36); Mean Corpuscular Volume 92.5 fL (80-100); Monocytes # (auto) 0.56 K/uL (0.11-0.59); Monocytes % (auto) 3.1 %; Neutrophils # (auto) 16.32 K/uL (1.4-6.5); Platelet Count 458 K/uL (130-400); RDW Coefficient of Variation 12.9 % (11.5-14.5); RDW Standard Deviation 43.5 fL (36.4-46.3); Red Blood Count 3.85 M/uL (4.2-5.4); White Blood Count 18.12 K/uL (4.8-10.8)
[2021-05-21] MEDS: ASCORBIC ACID 500 MG TAB PO SCH (07:29)
[2021-05-21] MEDS: ADVANCED PROBIOTIC 1250 MG CAPSULE PO SCH (07:29)
[2021-05-21] MEDS: ACETAMINOPHEN 1,000 MG/100 ML VIAL IV SCH (07:30)
[2021-05-21] MEDS: ZINC SULFATE 220 MG CAPSULE PO SCH (07:30)
[2021-05-21] MEDS: dexAMETHasone 6 MG in SYRINGE 0 ML IV SCH ×2 (07:30→09:43)
--- NOTE | 2021-05-21 08:59 | Orthopedic Progress Note ---
Date of Service May 21, 2021 Assessment & Plan (1) Lumbar disc herniation with radiculopathy: Plan: At this time patient is improving appropriately. She will begin physical therapy today. We will monitor her MARCOS output. Hopefully discharged home tomorrow. Admission and Anticipated Discharge Date Admission Date: May 19, 2021 Subjective Back pain right leg pain markedly improved. Physical Exam Physical Exam: Patient is in the chair at the bedside. Peers comfortable. Is distracted testing. Results & Data ([facility]) Vital Signs (Past 12 Hours) Vital Signs Temp Pulse Pulse Resp BP Pulse Ox 05/21/21 07:32 36.6 C 87 16 134/79 97 05/21/21 03:27 36.8 C 17 112/65 96 05/20/21 23:56 36.9 C 84 16 105/66 96
[2021-05-21] MEDS: dexAMETHasone 1 MG TAB PO SCH (10:31)
[2021-05-21] MEDS: ACETAMINOPHEN 500 MG TAB PO PRN (10:36)
[2021-05-21] MEDS ORDERED: bisacodyL 10 MG SUPP PR PRN (18:04)
--- NOTE | 2021-05-21 20:03 | Hospitalist Progress Note ---
Date of Service May 21, 2021 Assessment & Plan (1) Lumbar disc herniation with radiculopathy: (2) Hypertension: (3) Hypokalemia: (4) Hypothyroidism: (5) Hypercalcemia: Plan: Patient is a 60yo F with a PMH of lumbar radiculopathy, HTN, hypothyroidism and other medical problems listed below who presents with intractable BLE pain. Lumbar Disc Herniation with Radiculopathy S/P lumbar surgery by Dr. Fernandes POD#1 Leukocytosis likely secondary to steroids Acute blood loss postoperative anemia Continue wound care Pain control, anticoagulation, DVT prophylaxis as per primary team PT OT No indication for transfusion HTN Resume HCTZ as able Continue amlodipine Hypokalemia Replace electrolytes as needed Hypothyroidism Continue levothyroxine Hypercalcemia with hypophosphatemia PTH wnl Monitor DVT Px: As per Primary Team Code status: FULL CODE Admission and Anticipated Discharge Date Admission Date: May 19, 2021 Subjective Patient is seen and examined at bedside Back pain is controlled Right lower extremity numbness much improved States feeling well today Denies any chest pain, shortness of breath, dizziness, nausea, abdominal pain PT evaluation earlier today Review of Systems Review of Systems: All systems reviewed & are unremarkable except as noted in Subjective Physical Exam Physical Exam: Physical Exam: Vitals signs as noted above General Appearance:Moderately built and nourished, no apparent distress Head: normocephalic, Atraumatic Eyes: normal inspection, EOMI Neck: supple, Trachea midline Respiratory/Chest: Normal breath sounds, CTA Cardiovascular: S1, S2, No murmur Abdomen/GI:Soft, Non tender, Bowel sounds present Back: Surgical site in dressing Extremities/Musculoskeletal:normal inspection, no edema Neurologic/Psych:AAOX3, grossly no focal neurological deficits Skin: normal color, warm Results & Data Results & Data ([facility]) Vital Signs (Past 12 Hours) Vital Signs Temp Pulse Resp BP BP Pulse Ox 05/21/21 14:59 36.7 C 86 17 129/70 98 05/21/21 10:48 36.4 C L 97 H 18 132/74 97 Laboratory Results Short CBC 05/21/21 Range/Units 05:41 WBC 18.12 H D (4.8-10.8) K/uL Hgb 11.7 L (12.0-16.0) g/dL Hct 35.6 L (37-47) % Plt Count 458 H (130-400) K/uL BMP 05/21/21 05:41 Sodium 137 Potassium 4.4 Chloride 106 Carbon Dioxide 23 BUN 15 Creatinine 1.11 Glucose 139 H Calcium 8.8
[2021-05-21] MEDS: amLODIPine BESYLATE 5 MG TAB PO SCH (20:31)
[2021-05-21] MEDS: MAGNESIUM OXIDE 400 MG TAB PO SCH (20:31)
[2021-05-21] MEDS: DOCUSATE SODIUM/SENNA 50/8.6MG TAB PO SCH (20:32)
[2021-05-22] MEDS: LEVOTHYROXINE SODIUM 75 MCG TABLET PO SCH (05:32)
[2021-05-22] MEDS: POLYETHYLENE (MIRALAX) 17 GM PACK PO SCH ×2 (05:33→12:13)
[2021-05-22] MEDS: ACETAMINOPHEN 500 MG TAB PO PRN (05:35)
[2021-05-22] MEDS: ADVANCED PROBIOTIC 1250 MG CAPSULE PO SCH (08:06)
[2021-05-22] MEDS: ASCORBIC ACID 500 MG TAB PO SCH (08:06)
[2021-05-22] MEDS: ZINC SULFATE 220 MG CAPSULE PO SCH (08:07)
[2021-05-22] MEDS: dexAMETHasone 1 MG TAB PO SCH (08:07)
--- NOTE | 2021-05-22 12:28 | Discharge Summary ---
Date of Service May 22, 2021 Admission HPI Per Admitting Provider This is a 60-year-old female well-known to us that presents with steady decline in function over the past several weeks. She describes pain shooting down the right leg into the right knee. She denies any precipitating trauma fall or event. She has marked difficulty with walking as the right leg amanda and gives out regularly. She had a course of oral steroids without relief. All other medications failed to provide relief. She is markedly uncomfortable and crying during our discussion. Left leg is asymptomatic at this time. Principal Diagnosis Lumbar spinal stenosis with radiculopathy Discharge Data Allergies Allergy/AdvReac Type Severity Reaction Status Date / Time ciprofloxacin [From Cipro] Allergy Intermediate HIVES, Verified 05/19/21 16:50 RASH AND FACE REDNESS levofloxacin [From Levaquin] Allergy Intermediate HIVES, Verified 05/19/21 16:50 RASH AND FACE REDNESS chlorhexidine Allergy Unknown CONTACT Verified 05/19/21 16:50 DERMATITIS Consultations 05/19/21 16:38 ED Decision to Admit Stat 05/19/21 21:46 Consult Internal Medicine Routine Procedures Performed Operation Date: 05/20/21 12:45 Actual Procedures p L2-L3 Decompression, L3-L5 Fusion, Application of OssiMend, Bone Graft and Interbody Cage - Froy Fernandes DO s L3-L5 Hardware Removal - Froy Fernandes DO Ordered Studies 05/20/21 [place] lumbar spine 2-3V Routine Hospital Course (1) Lumbar disc herniation with radiculopathy: Patient was admitted with significant back and leg pain underwent surgery the next day tolerates well stable orthopedic floor. Postop day 1 she was up and ambulating with marked improvement of radiculopathy. She progressive postop day #2. MARCOS drain decreasing appropriately. Pain well controlled. Strength intact. Subsequently discharged home. Discharge orders instructions from the chart for further review. Total Time Total Time Spent Total Time Spent (In Minutes): 20 minutes Discharge Plan Discharge Items Patient Disposition: Home - Self-Care Reason For Visit: LEG PAIN AND WEAKNESS Discharge Diagnosis: Lumbar spinal stenosis with radiculopathy Activity: As commented below Non-emergency contact: Primary Care Provider Call non-emergency contact if: you have any medication questions Follow-up/Referrals: Prashanth Le MD [Primary Care Provider] - Diet: Regular Addtl Attending Provider Instructions: ACTIVITY RECOMMENDATIONS: SELF CARE INSTRUCTIONS AFTER THORACIC/LUMBAR FUSIONS 1. You may walk to your tolerance. It is good exercise for your legs and back. Expect some back and intermittent leg aches and pains. 2. You may perform "counter-top" level activities (make a sandwich, lavern with a project, etc.). 3. No bending or lifting of more than 10 pounds or back twisting of any nature (roll like a log when turning in bed). 4. You may ride in a car for 20-30 minutes at a time. No driving until after your first visit with your doctor. 5. Frequent changes of position and restricting sitting to 30 minutes at a time will help limit the amount of back spasms and stiffness you may experience. 6. You may discontinue the use of ambulatory aids (cane, crutches, etc.) once your strength and confidence allow. 7. You may bindery assistant the shower and let water strike your incision when you arrive home at least once daily. Do not take a tub bath, sit in a hot tub or go into a swimming pool until after your first recheck in the office. SPECIAL CARE INSTRUCTIONS: VERY IMPORTANT TO READ AND REVIEW A. Your surgical incision has been closed with a cosmetic suture under the skin that will dissolve in about 6 weeks. In 14 days, you can use a pair of clean scissors and cut the suture that is left outside of the skin at the ends of your incision. 1. The small skin tapes can be removed 7 days after surgery if they have not fallen off by that point. 2. You may keep the wound open to air as much as possible to promote healing after post-op day number 5 unless told otherwise by your doctor. 3. If you think the wound looks like it is becoming infected (redness or worsening drainage) and/or you are experiencing fever, chill or worsening back pain and muscle spasms, contact the office so that we may evaluate you as soon as possible. B. Complications are uncommon, but please contact us if you have any signs or symptoms of: 1. wound infection (fever higher than 102.5 degrees F, redness, separation of wound, drainage, or increasing pain from the incision) 2. blood clots in legs (pain, swelling, redness and warmth in legs) 3. urinary tract infection (fever higher than 102.5 degrees F, burning upon urination or increased frequency of urination) 4. nerve problems (inability to walk on your toes or heels, numbness, loss of bowel or bladder control) 5. any other symptoms that concern you C. Please call the office at if you have any concerns or questions about your operation or recovery. D. No smoking! Smoking drastically decreases the chance of a solid fusion. E. Do not take any anti-inflammatory medications (Indocin, Advil, Motrin, Aspirin, Naprosyn, etc.) as these may inhibit the chance of a solid fusion. Tylenol is okay to take for pain. MANAGING PAIN AFTER SPINAL SURGERY 1. Narcotic medication is intended for short-term use and will be provided for surgical pain. Surgical pain usually lasts for a period of 4-6 weeks. Narcotic medication includes Percocet, Vicodin, Darvocet, Tylenol #3 or Lortab. 2. Longer-term pain is more appropriately treated with non-narcotic medication such as Tylenol ES. 3. Muscle spasm is not appropriately treated with narcotics. Muscle relaxers such as Soma, Flexeril or Skelaxin can be used along with Tylenol ES. 4. Remember that we all live with some "aches and pains". This is not unusual or uncommon after an injury or as we get older. a. Back pain is expected and may include muscle spasms for 4 to 6 weeks after surgery. The pain should gradually improve. If the pain worsens for no apparent reason, please contact the office. b. Intermittent leg pain may also be experienced and should not be concerned about unless it worsens for no apparent reason. If so, please contact the office. 5. We will provide appropriate medication within the normal guidelines of their prescribed use. We will also be very cautious and aware of potential abuse and extended duration of patients' medication needs. a. Pain medications are for your comfort and to assist with sleep and rest so that the tissue can heal. They are not provided in order to return to normal activity and should not be used through the day. To do so or worsening pain at night can result from ongoing tissue damage and development of tolerance to the prescribed medicine. 6. Please allow 2-3 days to process refills. Prescriptions will not be mailed but must be picked up at the office. FOLLOW UP VISIT: Keep your scheduled follow-up appointment. Any questions, please call the office at . Pending Studies at Discharge: No Stand-Alone Forms: My [facility], Smoking Cessation Medications and DC Order Prescriptions: New oxycodone 5 mg tablet 5 mg PO Q6H PRN (Reason: pain, severe) Qty: 30 RF: 0 tramadol 50 mg tablet 50 mg PO Q6H PRN (Reason: pain, moderate) Qty: 30 RF: 0 Continued amlodipine 5 mg Tablet 5 mg PO HS RF: 0 ascorbic acid (vitamin C) [Vitamin C] 500 mg Tablet 500 mg PO QAM RF: 0 hydrochlorothiazide 25 mg Tablet 25 mg PO QAM RF: 0 magnesium 200 mg Tablet 400 mg PO QPM RF: 0 cholecalciferol (vitamin D3) [Vitamin D3] 125 mcg (5,000 unit) Tablet 125 mcg PO QPM RF: 0 Probiotic 3 billion cell Capsule 3,000 mmu cells PO QAM RF: 0 levothyroxine 75 mcg Tablet 75 mcg PO QAM RF: 0 tramadol 50 mg tablet 50 mg PO DIRECTED PRN (Reason: Pain) RF: 0 zinc 50 mg Tablet 50 mg PO QAM RF: 0 cyclobenzaprine 5 mg tablet 5 mg PO DIRECTED PRN (Reason: MUSCLE SPASMS) RF: 0 Discharge Orders: Discharge Order (Routine); Ordered 05/22/21 Ordered By: Froy Calhoun/Other Patient Handouts: 5 Steps for Eating Healthier, Exercise: Why Fitness Matters, Type 2 Diabetes Admission Data Admit Date/Time: 05/19/21 18:09 Attending Provider: Froy Fernandes Admit Provider: Froy Fernandes Primary Care Provider: Prashanth Le I. Other Providers: Floyd Hernandez ; Froy Fernandes ; Dayanara Dennis
[2021-05-22] MEDS: oxyCODONE HCL IR 5 MG TAB (IMMEDIATE RELEASE) PO PRN (12:55)
--- NOTE | 2021-05-22 13:18 | Hospitalist Progress Note ---
Date of Service May 22, 2021 Assessment & Plan (1) Lumbar disc herniation with radiculopathy: (2) Hypertension: (3) Hypokalemia: (4) Hypothyroidism: (5) Hypercalcemia: Plan: Patient is a 60yo F with a PMH of lumbar radiculopathy, HTN, hypothyroidism and other medical problems listed below who presents with intractable BLE pain. Lumbar Disc Herniation with Radiculopathy S/P lumbar surgery by Dr. Fernandes POD#2 Leukocytosis likely secondary to steroids Acute blood loss postoperative anemia Continue wound care Pain control, anticoagulation, DVT prophylaxis as per primary team PT OT No indication for transfusion Advised to follow-up with PCP in 1 week upon discharge HTN Continue HCTZ, amlodipine Hypokalemia Replace electrolytes as needed Hypothyroidism Continue levothyroxine Hypercalcemia with hypophosphatemia PTH wnl Monitor DVT Px: As per Primary Team Code status: FULL CODE Admission and Anticipated Discharge Date Admission Date: May 19, 2021 Subjective Patient is seen and examined at bedside Doing well today Back pain is much improved No new complaints Plan to be discharged home today Denies any chest pain, shortness of breath, dizziness, nausea, abdominal pain Review of Systems Review of Systems: All systems reviewed & are unremarkable except as noted in Subjective Physical Exam Physical Exam: Physical Exam: Vitals signs as noted above General Appearance:Moderately built and nourished, no apparent distress Head: normocephalic, Atraumatic Eyes: normal inspection, EOMI Neck: supple, Trachea midline Respiratory/Chest: Normal breath sounds, CTA Cardiovascular: S1, S2, No murmur Abdomen/GI:Soft, Non tender, Bowel sounds present Back: Surgical site in dressing Extremities/Musculoskeletal:normal inspection, no edema Neurologic/Psych:AAOX3, grossly no focal neurological deficits Skin: normal color, warm Results & Data Results & Data ([facility]) Vital Signs (Past 12 Hours) Vital Signs Temp Pulse Resp BP Pulse Ox 05/22/21 07:38 36.6 C 87 16 121/73 95
== END 2021-05-22 14:47 | disposition home or self-care (01) | DRG 454 ==
LOC: ED 10:44 → 3N 18:09